=== PATIENT | female | born 1940 | race Caucasian/White ===

== ENCOUNTER → 2020-12-01 | Outpatient (CLI) | payer MEDICARE ==
[2020-12-01 14:48] LABS: BILIRUBIN,URINE NEGATIVE (NEGATIVE); CLARITY,URINE CLOUDY; COLOR,URINE YELLOW; GLUCOSE, URINE (UA) NEGATIVE (NEGATIVE); KETONES,URINE NEGATIVE (NEGATIVE); LEUKOCYTE ESTERASE ,URINE 3+ (NEGATIVE); NITRITE,URINE POSITIVE (NEGATIVE); PROTEIN,URINE NEGATIVE (NEGATIVE)
[2020-12-01 14:49] LABS: BACTERIA,URINE LARGE /HPF; SQUAMOUS EPITHELIAL CELL,UR 0-2 /HPF; WBC,URINE 25-50 /HPF
== END ==
LOC: IHC 14:28
DX: N39.0 Urinary tract infection, site not specified (principal)
CPT/HCPCS: 81000; 87077; 87088

== ENCOUNTER 2021-08-27 10:49 | Inpatient (IN) | payer MEDICARE ==
[~2021-08-27] VITALS: Ht 155 cm; Wt 37.6 kg
[2021-08-27 11:15] LABS: BASOPHILS # (AUTO) 0.1 10^3/uL (0.0-0.1); BASOPHILS % (AUTO) 1 % (0-10); EOSINOPHILS # (AUTO) 0.1 10^3/uL (0.0-0.3); EOSINOPHILS % (AUTO) 1 % (0-10); HEMATOCRIT 40 % (35-52); HEMOGLOBIN 13.6 g/dL (11.5-16.0); LYMPHOCYTES # (AUTO) 0.7 10^3/uL (1.0-4.0); LYMPHOCYTES % (AUTO) 6 % (12-44); MEAN CORPUSCULAR HEMOGLOBIN 31 pg (25-34); MEAN CORPUSCULAR HGB CONC 34 g/dL (32-36); MEAN CORPUSCULAR VOLUME 91 fL (80-99); MEAN PLATELET VOLUME 8.8 fL (9.0-12.2); MONOCYTES # (AUTO) 0.9 10^3/uL (0.0-1.0); MONOCYTES % (AUTO) 8 % (0-12); NEUTROPHILS # (AUTO) 9.6 10^3/uL (1.8-7.8); NEUTROPHILS % (AUTO) 84 % (42-75); PLATELET COUNT 291 10^3/uL (130-400); WHITE BLOOD COUNT 11.4 10^3/uL (4.3-11.0)
[2021-08-27 11:42] LABS: ALANINE AMINOTRANSFERASE 9 U/L (0-55); ALKALINE PHOSPHATASE 85 U/L (40-136); BILIRUBIN,TOTAL 0.8 MG/DL (0.1-1.0); BUN/CREATININE RATIO 23; CALCIUM 10.4 MG/DL (8.5-10.1); CARBON DIOXIDE 25 MMOL/L (21-32); CHLORIDE 92 MMOL/L (98-107); CREATININE SERUM 0.43 MG/DL (0.60-1.30); GFR ESTIMATED 96; GLUCOSE 116 MG/DL (70-105); POTASSIUM 3.5 MMOL/L (3.6-5.0); SODIUM 130 MMOL/L (135-145)
[2021-08-27 11:43] LABS: ALBUMIN 4.4 GM/DL (3.2-4.5); TOTAL PROTEIN 7.8 GM/DL (6.4-8.2)
[2021-08-27 11:45] LABS: BAND NEUTROPHILS 3 %; LYMPHOCYTES % (MANUAL) 8 %; MONOCYTES % (MANUAL) 7 %; NEUTROPHILS % (MANUAL) 82 %; RBC MORPH NORMAL
--- NOTE | 2021-08-27 11:47 | Diagnostic Imaging Report ---
EXAMINATION: Chest 1 view HISTORY: SOA COMPARISON: 05/02/2014 FINDINGS: Heart size and pulmonary vasculature are normal. There is a right-sided pneumothorax with 3.0 cm of pleural separation. Mild bibasilar atelectasis. No pleural effusion. Significant dextrocurvature of the spine. IMPRESSION: 1. Right-sided pneumothorax with 3 cm of pleural separation. CRITICAL FINDING. Results communicated to Dr. Hood Rosas by Dr. Timo Jose at 11:41 AM on 08/27/2021. Dictated by: Dictated on workstation # [id number]
[2021-08-27 11:50] LABS: ABG BASE EXCESS 7.2 MMOL/L (-2.5-2.5); ABG OXYGEN SATURATION 96 % (94-100); ABG PCO2 34 MMHG (35-45); ABG PH 7.55 (7.37-7.43); ABG PO2 70 MMHG (79-93); ABG TCO2 30.7 MMOL/L (21.0-31.0); ALLENS TEST YES-POS; INSPIRED O2 3L @95%; PATIENT TEMP 36.9; VENTILATOR NO
--- NOTE | 2021-08-27 12:06 | ED General ---
General Chief Complaint: Respiratory Problems Stated Complaint: SOB Nursing Triage Note: Patient presents to the ED with c/o right rib pain and shortness of breath. Patient reports fall 2 days ago and states she hit the right side of her ribs. Reports shortness of breath since that time. Nursing staff at assisted living facility report oxygen saturation of 85% on room air. Source of Information: Patient Exam Limitations: No Limitations History of Present Illness Date Seen by Provider: Aug 27, 2021 Time Seen by Provider: 11:00 Initial Comments Patient is an 86-year-old female who presents with right posterior rib pain after falling from standing 2 days ago. Patient reports persistent right posterior rib pain and shortness of breath since the time of fall. Patient has had [facility] facility reports her oxygen saturations were 85%. No fevers chills, cough, sore throat. No chest pain. Denies increased leg pain or swelling. Patient is not on anticoagulation or antiplatelet therapy. Additional history is obtained from the patient's family members. Timing/Duration: 1-2 Days Severity: Moderate Modifying Factors: improves with Other Associated Systoms: Denies Symptoms, Other Allergies and Home Medications Allergies Coded Allergies: No Known Drug Allergies (Unverified , 08/27/21) Patient Home Medication List Home Medication List Reviewed: Yes Review of Systems Review of Systems Constitutional: see HPI EENTM: see HPI Respiratory: see HPI Cardiovascular: see HPI Gastrointestinal: see HPI Genitourinary: see HPI Musculoskeletal: see HPI Skin: see HPI Psychiatric/Neurological: See HPI Hematologic/Lymphatic: See HPI Immunological/Allergic: see HPI All Other Systems Reviewed Negative Unless Noted: Yes Past Lxovqgm-Lanrqg-Gxvvfz Hx Patient Social History Tobacco Use?: Yes Substance use?: No Alcohol Use?: Yes Alcohol type: Wine Pt feels they are or have been: No Immunizations Up To Date First/Initial COVID19 Vaccinat: Yes Second COVID19 Vaccination Ronny: Yes Past Medical History Surgery/Hospitalization HX: Right mastectomy; Hernia repair; frequent falls; hip fracture with repair x2; c5 fracture. Neuropathy Physical Exam Vital Signs Vital Signs - First Documented 08/27/21 10:50 Temp 37.0 Pulse 95 Resp 20 B/P (MAP) 142/91 (108) Pulse Ox 94 O2 Delivery Nasal Cannula O2 Flow Rate 3.00 Capillary Refill : Less Than 3 Seconds Height, Weight, BMI Height: '" Weight: lbs. oz. kg; BMI Method: General Appearance: No Apparent Distress, Anxious Eyes: Bilateral Eye Normal Inspection, Bilateral Eye PERRL, Bilateral Eye EOMI HEENT: PERRL/EOMI, Normal ENT Inspection Neck: Non Tender, Supple Respiratory: No Accessory Muscle Use, Other (Diminished breath sounds right lung pruett, posterior chest wall tenderness with subcutaneous emphysema below the level of scapula) Cardiovascular: Regular Rate, Rhythm Gastrointestinal: Non Tender, Soft Back: No CVA Tenderness, Other (Severe scoliosis) Neurologic/Psychiatric: Alert, Oriented x3 Focused Exam Sepsis Stage: Ruled Out Progress/Results/Core Measures Suspected Sepsis SIRS Temperature: Pulse: 95 Respiratory Rate: 20 Laboratory Tests 08/27/21 11:05: White Blood Count 11.4H Blood Pressure 142 /91 Mean: 108 Laboratory Tests 08/27/21 11:05: Creatinine 0.43L, Platelet Count 291, Total Bilirubin 0.8 Results/Orders Lab Results Laboratory Tests Test 08/27/21 11:05 08/27/21 11:43 Range/Units White Blood Count 11.4 H 4.3-11.0 10^3/uL Red Blood Count 4.35 3.80-5.11 10^6/uL Hemoglobin 13.6 11.5-16.0 g/dL Hematocrit 40 35-52 % Mean Corpuscular Volume 91 80-99 fL Mean Corpuscular Hemoglobin 31 25-34 pg Mean Corpuscular Hemoglobin Concent 34 32-36 g/dL Red Cell Distribution Width 13.0 10.0-14.5 % Platelet Count 291 130-400 10^3/uL Mean Platelet Volume 8.8 L 9.0-12.2 fL Immature Granulocyte % (Auto) 0 % Neutrophils (%) (Auto) 84 H 42-75 % Lymphocytes (%) (Auto) 6 L 12-44 % Monocytes (%) (Auto) 8 0-12 % Eosinophils (%) (Auto) 1 0-10 % Basophils (%) (Auto) 1 0-10 % Neutrophils # (Auto) 9.6 H 1.8-7.8 10^3/uL Lymphocytes # (Auto) 0.7 L 1.0-4.0 10^3/uL Monocytes # (Auto) 0.9 0.0-1.0 10^3/uL Eosinophils # (Auto) 0.1 0.0-0.3 10^3/uL Basophils # (Auto) 0.1 0.0-0.1 10^3/uL Immature Granulocyte # (Auto) 0.0 0.0-0.1 10^3/uL Neutrophils % (Manual) 82 % Lymphocytes % (Manual) 8 % Monocytes % (Manual) 7 % Band Neutrophils 3 % Blood Morphology Comment NORMAL Sodium Level 130 L 135-145 MMOL/L Potassium Level 3.5 L 3.6-5.0 MMOL/L Chloride Level 92 L 98-107 MMOL/L Carbon Dioxide Level 25 21-32 MMOL/L Anion Gap 13 5-14 MMOL/L Blood Urea Nitrogen 10 7-18 MG/DL Creatinine 0.43 L 0.60-1.30 MG/DL Estimat Glomerular Filtration Rate 96 BUN/Creatinine Ratio 23 Glucose Level 116 H 70-105 MG/DL Calcium Level 10.4 H 8.5-10.1 MG/DL Corrected Calcium 10.1 8.5-10.1 MG/DL Total Bilirubin 0.8 0.1-1.0 MG/DL Aspartate Amino Transf (AST/SGOT) 19 5-34 U/L Alanine Aminotransferase (ALT/SGPT) 9 0-55 U/L Alkaline Phosphatase 85 40-136 U/L Troponin I < 0.30 <0.30 NG/ML Pro-B-Type Natriuretic Peptide 1301.0 H <75.0 PG/ML Total Protein 7.8 6.4-8.2 GM/DL Albumin 4.4 3.2-4.5 GM/DL Blood Gas Puncture Site LT RADIAL Blood Gas Patient Temperature 36.9 Arterial Blood pH 7.55 H 7.37-7.43 Arterial Blood Partial Pressure CO2 34 L 35-45 MMHG Arterial Blood Partial Pressure O2 70 L 79-93 MMHG Arterial Blood HCO3 30 H 23-27 MMOL/L Arterial Blood Total CO2 30.7 21.0-31.0 MMOL/L Arterial Blood Oxygen Saturation 96 94-100 % Arterial Blood Base Excess 7.2 H -2.5-2.5 MMOL/L Jesse Test YES-POS Blood Gas Ventilator Setting NO Blood Gas Inspired Oxygen 3L @95% My Orders Orders - MARK MILLER DO Cbc With Automated Diff (08/27/21 11:04) Comprehensive Metabolic Panel (08/27/21 11:04) Chest 1 View Ap/Pa Only (08/27/21 11:04) Ekg Tracing (08/27/21 11:04) Probnp Fs (08/27/21 11:04) Arterial Blood Gas (08/27/21 11:04) Troponin I Fs (08/27/21 11:04) Manual Differential (08/27/21 11:05) Lidocaine 1% Inj 20 Ml (Xylocaine 1% Inj (08/27/21 12:15) Lidocaine 1% Inj 50 Ml (Xylocaine 1% Inj (08/27/21 12:12) Ct Chest W (08/27/21 12:39) Iohexol Injection (Omnipaque 350 Mg/Ml 1 (08/27/21 12:45) Sodium Chloride Flush (Catheter Flush Sy (08/27/21 12:45) Ns (Ivpb) (Sodium Chloride 0.9% Ivpb Bag (08/27/21 12:45) Received Contrast (Hold Metformin- Contr (08/27/21 12:45) Iohexol Injection (Omnipaque 300 Mg/Ml 1 (08/27/21 13:15) Received Contrast (Hold Metformin- Contr (08/27/21 13:15) Furosemide Injection (Lasix Injection) (08/27/21 13:45) Medications Given in ED Current Medications Medications Dose Ordered Sig/Nahid Route Start Time Stop Time Status Last Admin Dose Admin Iohexol 75 ml ONCE ONCE IV 08/27/21 13:15 08/27/21 13:16 DC 08/27/21 13:10 75 ML Lidocaine HCl 20 ml ONCE ONCE INJ 08/27/21 12:15 08/27/21 12:16 DC 08/27/21 12:44 20 ML Sodium Chloride 10 ml NEEDED PRN IV 08/27/21 12:45 08/27/21 13:00 10 ML Sodium Chloride 100 ml ONCE ONCE IV 08/27/21 12:45 08/27/21 12:46 DC 08/27/21 13:00 100 ML Vital Signs/I&O 08/27/21 10:50 Temp 37.0 Pulse 95 Resp 20 B/P (MAP) 142/91 (108) Pulse Ox 94 O2 Delivery Nasal Cannula O2 Flow Rate 3.00 Capillary Refill : Less Than 3 Seconds Blood Pressure Mean: 108 Departure Communication (Admissions) Chest x-ray: Moderate right-sided pneumothorax per radiology report CT Chest: multiple posterior rib fractures with residual pneumothorax. Thera-vent chest tube/vacuum device placed and air aspirated. Patient with improved breathing with re-expansion of pneumothorax. Patient requires O2 to remain sats greater than 90%. Will transfer to [place]. Dr. Candelario to admit. Dr. Angel to consult. Impression Primary Impression: Pneumothorax on right Additional Impression: Ribs, multiple fractures Disposition: ADMITTED INPATIENT Condition: Stable Admissions Decision to Admit Reason: Admit from ER (General) Decision to Admit/Date: Aug 27, 2021 Transfer Method of Transfer: EMS Departure-Patient Inst. Referrals: SANTHOSH AZEVEDO APRN (PCP) Primary Care Physician [facility] (Family) Primary Care Physician MARK MILLER DO Aug 27, 2021 12:06
[2021-08-27] MEDS ORDERED: LIDOCAINE 1% INJ 50 ML (XYLOCAINE) VIAL ONE (12:12)
[2021-08-27] MEDS ORDERED: LIDOCAINE 1% INJ 20 ML VIAL INJ ONE (12:15)
[2021-08-27] MEDS ORDERED: NS 100 ML (IVPB) BAG IV ONE (12:45)
[2021-08-27] MEDS ORDERED: CATHETER FLUSH 10 ML SYR IV PRN (12:45)
[2021-08-27] MEDS ORDERED: HOLD METFORMIN - RECEIVED CONTRAST 20 ML VIAL IV SCH ×2 (12:45→13:15)
[2021-08-27] MEDS ORDERED: IOHEXOL 350 MG/ML 100 ML (OMNIPAQUE 350) VIAL IV ONE (12:45)
[2021-08-27] MEDS ORDERED: IOHEXOL 300 MG/ML 100 ML (OMNIPAQUE 300) VIAL IV ONE (13:15)
--- NOTE | 2021-08-27 13:37 | Diagnostic Imaging Report ---
PROCEDURE: CT chest with contrast only. TECHNIQUE: Multiple contiguous axial images were obtained through the chest after administration of intravenous contrast. Auto Exposure Controls were utilized during the CT exam to meet ALARA standards for radiation dose reduction. INDICATION: Dyspnea Since the chest x-ray performed earlier in the day, there has been placement of pleural catheter from anterior chest wall approach. There has been evacuation of the majority of the right pneumothorax. Small residual pneumothorax persists. The pleural catheter extends medially into the mediastinum with tip near the mynor. Otherwise, there is background emphysema throughout the lungs with mild right pleural fluid and associated subjacent atelectasis and/or pneumonitis in the right base. There are multiple fractures involving the lateral aspect of right ribs including 6th, 7th, and 8th ribs as well as what appear to be old fractures involving the posterior aspect of lower right ribs. There is extensive right convexity curvature of the thoracic spine. This does limit evaluation of osseous structures. There is also motion artifact which limits evaluation of the sternum. IMPRESSION: Small residual right pneumothorax post Thora-Vent placement. Catheter is deviated medially into the mediastinum with mild right pleural fluid and subjacent atelectasis and/or pneumonitis. Multiple right rib fractures are noted. There appears to be a combination of acute and chronic fractures and clinical correlation would be of use. Dictated by: Dictated on workstation # [id number]
[2021-08-27] MEDS ORDERED: FUROSEMIDE 40 MG/4 ML INJ (LASIX) IVP ONE (13:45)
[2021-08-27 16:09] VITALS: BP 160/92
[2021-08-27] MEDS ORDERED: polyethylene glycoL POWDER 17 GM (MIRALAX) PACK PO PRN (16:30)
[2021-08-27] MEDS ORDERED: diphenhydrAMINE 50 MG/ML INJ (BENADRYL) IVP PRN (16:30)
[2021-08-27] MEDS ORDERED: ANTACID SUSP 30 ML UDC (MYLANTA) PO PRN (16:30)
[2021-08-27] MEDS ORDERED: morphine INJ 4 MG/ML 1 ML (VIAL/SYRINGE) IV PRN (16:30)
[2021-08-27] MEDS ORDERED: ACETAMINOPHEN 325 MG TABLET PO PRN (16:30)
[2021-08-27] MEDS ORDERED: MELATONIN 3 MG TABLET PO PRN (16:30)
[2021-08-27] MEDS ORDERED: BISACODYL 10 MG SUPP (DULCOLAX) PR PRN (16:30)
[2021-08-27] MEDS ORDERED: ONDANSETRON 4 MG (ZOFRAN) ORAL DISSOLVE TAB PO PRN (16:30)
[2021-08-27] MEDS ORDERED: diphenhydrAMINE 25 MG TAB (BENADRYL) PO PRN (16:30)
[2021-08-27] MEDS ORDERED: ONDANSETRON 4 MG/2 ML (SDV) Z0FRAN IV PRN (16:30)
[2021-08-27 16:58] VITALS: BP 142/91
[2021-08-27] MEDS: ENOXAPARIN INJECTION 30 MG/0.3 ML SYR SC SCH (17:19)
[2021-08-27] MEDS: RT-ALBUTEROL SULF 2.5 MG/3 ML PRE-MIX VIAL INH SCH ×2 (18:43→21:52)
[2021-08-27 19:36] VITALS: BP 148/89
[2021-08-27] MEDS ORDERED: RT-ALBUTEROL SULF 2.5 MG/3 ML PRE-MIX VIAL INH PRN (20:00)
[2021-08-27] MEDS: DOCUSATE SODIUM 100 MG (COLACE) CAP PO SCH (20:37)
[2021-08-27] MEDS ORDERED: fentaNYL INJ 100 MCG/2 ML AMP IVP PRN (22:15)
[2021-08-27] MEDS: HYDROcodone/APAP 5 MG/325 MG (LORTAB) TAB PO PRN (22:31)
[2021-08-28] VITALS (7 sets, daily range): BP systolic 93–141; BP diastolic 52–84
[2021-08-28] MEDS: RT-ALBUTEROL SULF 2.5 MG/3 ML PRE-MIX VIAL INH SCH ×4 (01:56→20:19)
[2021-08-28 05:52] LABS: BASOPHILS # (AUTO) 0.1 10^3/uL (0.0-0.1); BASOPHILS % (AUTO) 1 % (0-10); EOSINOPHILS # (AUTO) 0.4 10^3/uL (0.0-0.3); EOSINOPHILS % (AUTO) 5 % (0-10); HEMATOCRIT 37 % (35-52); HEMOGLOBIN 12.3 g/dL (11.5-16.0); LYMPHOCYTES # (AUTO) 0.9 10^3/uL (1.0-4.0); LYMPHOCYTES % (AUTO) 11 % (12-44); MEAN CORPUSCULAR HEMOGLOBIN 32 pg (25-34); MEAN CORPUSCULAR HGB CONC 34 g/dL (32-36); MEAN CORPUSCULAR VOLUME 95 fL (80-99); MONOCYTES # (AUTO) 0.9 10^3/uL (0.0-1.0); MONOCYTES % (AUTO) 11 % (0-12); NEUTROPHILS # (AUTO) 6.1 10^3/uL (1.8-7.8); NEUTROPHILS % (AUTO) 73 % (42-75); PLATELET COUNT 235 10^3/uL (130-400); WHITE BLOOD COUNT 8.4 10^3/uL (4.3-11.0)
--- NOTE | 2021-08-28 06:03 | History & Physical-Hospitalist ---
History of Present Illness HPI/Chief Complaint Chief complaint: Right-sided pneumothorax History present illness: This is an 81-year-old female who resides in assisted living who sustained a fall 2 days prior and subsequent right rib pain was becoming short of breath with pulse ox of 85% she was assessed in the ER to have right-sided subcutaneous air with crepitus chest x-ray showed pneumothorax and Thora vent was placed. Dr. HERNÁNDEZ's been consulted. She reports the rib pain is much improved. Tylenol only is given and hydrocodone is ordered but she is hesitant due to constipating effects. I did start her on MiraLAX. Family at the bedside. Patient has severe scoliosis and chest x-ray shows COPD changes. Source: patient, RN/MD, old records Exam Limitations: no limitations Date Seen 08/28/21 Time Seen by a Provider: 09:00 Attending Physician Cate Wolff Aprn PCP Admitting Physician: Cordelia Bianchi DO Attending Physician: Cordelia Bianchi DO Referring Physician Date of Admission Aug 27, 2021 at 15:55 Home Medications & Allergies Home Medications Reviewed patient Home Medication Reconciliation performed by pharmacy medication reconciliations crane service technician and/or nursing. Patients Allergies have been reviewed. Allergies Allergies Coded Allergies No Known Drug Allergies (Unverified08/27/21) Past Eofeafd-Gircxm-Tzouid Hx Patient Social History Marrital Status: single Employed/Student: retired Tobacco Use?: No Smoking Status: Former Smoker Substance use?: No Alcohol Use?: Yes Alcohol type: Wine Alcohol Frequency: Daily Pt feels they are or have been: No Immunizations Up To Date First/Initial COVID19 Vaccinat: Yes Second COVID19 Vaccination Ronny: Yes Current Status Advance Directives: No Primary Language: Syrian Preferred Spoken Language: Syrian Sensory deficits: Vision impairment Past Medical History Degenerate Disk Disease Breast Review of Systems Constitutional: see HPI EENTM: no symptoms reported Respiratory: dyspnea on exertion Cardiovascular: no symptoms reported Gastrointestinal: no symptoms reported Genitourinary: no symptoms reported Physical Exam Physical Exam Vital Signs Vital Signs - First Documented 08/27/21 08/27/21 10:50 16:58 Temp 37.0 Pulse 95 Resp 20 B/P (MAP) 142/91 (108) Pulse Ox 94 O2 Delivery Nasal Cannula O2 Flow Rate 3.00 FiO2 32 Capillary Refill : Less Than 3 Seconds Height, Weight, BMI Height: '" Weight: lbs. oz. kg; 15.65 BMI Method: General Appearance: No Apparent Distress Eyes: Right Eye Normal Inspection, Right Eye PERRL HEENT: PERRL/EOMI, Normal ENT Inspection, Pharynx Normal, Moist Mucous Me mbranes Neck: Full Range of Motion, Normal Inspection, Non Tender Respiratory: Chest Non Tender, Normal Breath Sounds, No Accessory Muscle Use, No Respiratory Distress, Decreased Breath Sounds (On the right) Cardiovascular: Regular Rate, Rhythm, No Edema, No Gallop, No JVD, No Murmur, Normal Peripheral Pulses Gastrointestinal: Normal Bowel Sounds, No Organomegaly, No Pulsatile Mass, Non Tender, Soft Back: Normal Inspection, No CVA Tenderness, No Vertebral Tenderness, Other (Severe scoliosis) Extremity: Normal Capillary Refill, Normal Inspection, Normal Range of Motion, Non Tender, No Calf Tenderness, No Pedal Edema Neurologic/Psychiatric: Alert, Oriented x3, No Motor/Sensory Deficits, Normal Mood/Affect Skin: Normal Color, Warm/Dry Lymphatic: No Adenopathy Results Results/Procedures Labs Laboratory Tests 08/27/21 11:05 08/28/21 05:45 Patient resulted labs reviewed. Assessment/Plan Admission Diagnosis Assessment: Right-sided pneumothorax status post Thora vent placement Fall with right rib fractures causing pneumothorax Chronic constipation History of breast cancer Severe scoliosis COPD changes on chest x-ray Congestive heart failure? Plan: Consult Dr. Mendez O2 Consult [address] HERNÁNDEZ for chest tube management Pain control Admission Status: Inpatient Order (span 2 midnights) Reason for Inpatient Admission: Pneumothorax Diagnosis/Problems Diagnosis/Problems (1) Pneumothorax on right Status: Acute CORDELIA BIANCHI DO Aug 28, 2021 06:03
[2021-08-28 06:18] LABS: ALBUMIN 3.3 GM/DL (3.2-4.5); POTASSIUM 3.2 MMOL/L (3.6-5.0)
[2021-08-28 06:19] LABS: CALCIUM 9.2 MG/DL (8.5-10.1)
[2021-08-28 06:20] LABS: TOTAL PROTEIN 6.3 GM/DL (6.4-8.2)
[2021-08-28 06:22] LABS: BILIRUBIN,TOTAL 0.8 MG/DL (0.1-1.0)
[2021-08-28 06:24] LABS: CREATININE SERUM 0.54 MG/DL (0.60-1.30)
--- NOTE | 2021-08-28 06:36 | CONSULTATION REPORT ---
DATE OF SERVICE: ADMITTING PHYSICIAN: Cordelia Candelario DO ATTENDING SALES ARCHITECT: Cate Wolff APRN. The majority of the history and physical was obtained through the emergency room physician as well as electronic medical records and the physical examination will be performed in a.m. HISTORY OF PRESENT ILLNESS: The patient is an 81-year-old female with same level fall 2 days ago. She then reports pain along the right posterior chest as well as worsening shortness of breath. She resides in a shelter facility and her oxygen saturation was found to be 85%. She was brought to the Emergency Department where a chest x-ray as well as CT scan was performed, which did show a small to moderate sized pneumothorax along the right side approximately 3 cm in size. She also does have a nondisplaced posterolateral right rib fractures 6 through 8. A Thora-Vent was placed by the ED staff and followup x-ray did show just a small residual pneumothorax. She does have some level of confusion. She is awake and alert and does answer majority of questions appropriately. Her [place] coma scale upon admission was 13. PAST MEDICAL HISTORY: History of breast cancer, neuropathy, ataxia, frequent falls, and COPD. PAST SURGICAL HISTORY: Right mastectomy, hernia repair, hip fracture x2, ORIF of C5. ALLERGIES: No known drug allergies. MEDICATIONS: Albuterol nebulizer q.2 hours p.r.n., Colace 100 mg b.i.d., enoxaparin 30 mg daily, hydrocodone p.r.n., morphine p.r.n., Zofran p.r.n., oxycodone p.r.n., MiraLax p.r.n. SOCIAL HISTORY: Previous smoker, a history of drinking wine. FAMILY HISTORY: Noncontributory. VITAL SIGNS: Temperature 36.7, blood pressure 148/89, pulse 88, respirations 20, pulse ox 97% on 3 liters nasal cannula. Physical examination will be assessed upon examination. LABORATORY DATA: WBC 11.4, hemoglobin 13.6, hematocrit 40, and platelets 291, BUN 10, creatinine 0.43. ASSESSMENT AND PLAN: An 81-year-old female with a history of frequent falls with a same level fall at her shelter facility 2 days ago with worsening shortness of breath and found to have a small to moderate size right pneumothorax as well as posterolateral right rib fractures 6 through 8. A Thora-Vent was placed and there is minimal residual pneumothorax remaining. We will proceed with serial chest x-rays and once the pneumothorax has resolved, we will remove the Thora-Vent. She will also need pneumonia prophylaxis with adequate pain control, incentive spirometry, early ambulation as well as breathing treatments. Job ID: [id number] DocumentID: [id number] Dictated Date: 08/27/2021 22:09:23 Shift Supervisor Film Processing Date: 08/28/2021 06:35:20 Dictated By: CANDICE HERNÁNDEZ MD
[2021-08-28] MEDS: DOCUSATE SODIUM 100 MG (COLACE) CAP PO SCH ×2 (09:22→20:42)
--- NOTE | 2021-08-28 09:32 | Diagnostic Imaging Report ---
Indication: Pneumothorax. Catheter projects over the right hemithorax. There is a persistent right pneumothorax without evidence for its tension. Apical pleural separation at 2.6 cm today, previously 3 cm. Slightly decreased pleural fluid at the right base better visualized owing to upright technique. 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 IMPRESSION: The right pneumothorax measures slightly smaller than on prior. Right pleural fluid volume may have increased. Severe underlying COPD superimposed chronic as is S type scoliosis. Dictated by: Dictated on workstation # [id number]
--- NOTE | 2021-08-28 10:53 | Consultation-Cardiology ---
HPI-Cardiology Cardiology Consultation: Date of Consultation 08/28/21 Date of Admission 08/27/21 Attending Physician Cate Wolff Aprn Admitting Physician Admitting Physician: Cordelia Candelario DO Attending Physician: Cordelia Candelario DO Consulting Physician JIA ALEXANDER JR, MD HPI: Time Seen by a Provider: 11:12 Chief Complaint: REASON FOR CONSULTATION: Abnormal BNP level. I had the pleasure of seeing Ev on the medical/surgical unit at [facility] in [place], [place] today. She has no significant past medical history. She is currently residing at an assisted care facility with her in [place], [place]. Yesterday one of the facility staff noticed that the patient appeared to be having shortness of breath. She was subsequently taken to the emergency room at [place] and during her evaluation, she was found to have a significant right-sided pneumothorax. A chest tube was placed and she was transferred to our hospital for further treatment and evaluation. During her evaluation in the outside emergency room, a BNP level was obtained and this was mildly elevated. A cardiology consultation was subsequently requested. She does have some mild pleuritic chest pain near the chest tube insertion site. She does not normally have shortness of breath. She denies paroxysmal nocturnal dyspnea, orthopnea, palpitations, lightheadedness, syncope, or ankle edema. Over the past 18 or so months, she has suffered several falls. 2 of these resulted in hip fractures. She does also have severe osteoporosis. Certain portions of this document may have been dictated utilizing voice recognition technology. Inherent to this technology, typographical and grammatical errors may exist. As much as I am diligent to identify and correct these mistakes, some errors may remain in the document. Review of Systems-Cardiology Review of Systems Other comments Review of 10 organ systems is as per the history of present illness, otherwise negative. All Other Systems Reviewed Negative Unless Noted: Yes OVY-Sulcpf-Nzqery Hx Patient Social History Marrital Status: Smoking Status: Former Smoker Have you traveled recently?: No Alcohol Use?: Yes Pt feels they are or have been: No Past Medical History PMH As described under Assessment. Family Medical History Family Medical History: The patient does not know of any family history of premature coronary artery disease in first-degree relatives. Allergies and Home Medications Allergies Coded Allergies: No Known Drug Allergies (Unverified , 08/27/21) Patient Home Medication List Home Medication List Reviewed: Yes Exam Vital Signs Vital Signs Date Time Temp Pulse Resp B/P (MAP) Pulse Ox O2 Delivery O2 Flow Rate FiO2 08/28/21 07:10 37.5 80 20 115/69 (84) 94 Nasal Cannula 1.00 08/27/21 16:58 32 Physical Exam General: Alert. No acute distress. Well nourished and appears stated age. Eye: Extraocular movements are intact. Conjunctivae are clear. There are no xanthelasma. HENT: Normocephalic. Atraumatic. Carotid pulsations 2/2 without bruits. Neck: Jugular venous pressure does not appear elevated. No thyromegaly appreciated. Respiratory: Lungs are clear to auscultation. She has a right-sided chest tube in place. Respirations are non-labored. Breath sounds are equal. Symmetrical chest wall expansion. Cardiovascular: Normal rate. Regular rhythm. No murmur. No gallop. Point of maximal impulse is not appear displaced. Good pulses equal in all extremities. No edema. Gastrointestinal: Soft. Normal bowel sounds. Skin: Skin turgor is normal. There is no pallor. Musculoskeletal: There is significant thoracic scoliosis. Neurologic: Alert and oriented to person, place, time. Cranial nerves 3-12 appear grossly intact. The patient has good motor tone strength in the upper and lower extremities bilaterally. Psychiatric: Cooperative. Appropriate mood & affect. Labs Laboratory Tests Test 08/27/21 11:43 08/28/21 05:45 Range/Units Blood Gas Puncture Site LT RADIAL Blood Gas Patient Temperature 36.9 Arterial Blood pH 7.55 H 7.37-7.43 Arterial Blood Partial Pressure CO2 34 L 35-45 MMHG Arterial Blood Partial Pressure O2 70 L 79-93 MMHG Arterial Blood HCO3 30 H 23-27 MMOL/L Arterial Blood Total CO2 30.7 21.0-31.0 MMOL/L Arterial Blood Oxygen Saturation 96 94-100 % Arterial Blood Base Excess 7.2 H -2.5-2.5 MMOL/L Jesse Test YES-POS Blood Gas Ventilator Setting NO Blood Gas Inspired Oxygen 3L @95% White Blood Count 8.4 4.3-11.0 10^3/uL Red Blood Count 3.85 3.80-5.11 10^6/uL Hemoglobin 12.3 11.5-16.0 g/dL Hematocrit 37 35-52 % Mean Corpuscular Volume 95 80-99 fL Mean Corpuscular Hemoglobin 32 25-34 pg Mean Corpuscular Hemoglobin Concent 34 32-36 g/dL Red Cell Distribution Width 13.1 10.0-14.5 % Platelet Count 235 130-400 10^3/uL Mean Platelet Volume 9.0 9.0-12.2 fL Immature Granulocyte % (Auto) 0 % Neutrophils (%) (Auto) 73 42-75 % Lymphocytes (%) (Auto) 11 L 12-44 % Monocytes (%) (Auto) 11 0-12 % Eosinophils (%) (Auto) 5 0-10 % Basophils (%) (Auto) 1 0-10 % Neutrophils # (Auto) 6.1 1.8-7.8 10^3/uL Lymphocytes # (Auto) 0.9 L 1.0-4.0 10^3/uL Monocytes # (Auto) 0.9 0.0-1.0 10^3/uL Eosinophils # (Auto) 0.4 H 0.0-0.3 10^3/uL Basophils # (Auto) 0.1 0.0-0.1 10^3/uL Immature Granulocyte # (Auto) 0.0 0.0-0.1 10^3/uL Sodium Level 131 L 135-145 MMOL/L Potassium Level 3.2 L 3.6-5.0 MMOL/L Chloride Level 95 L 98-107 MMOL/L Carbon Dioxide Level 27 21-32 MMOL/L Anion Gap 9 5-14 MMOL/L Blood Urea Nitrogen 10 7-18 MG/DL Creatinine 0.54 L 0.60-1.30 MG/DL Estimat Glomerular Filtration Rate 91 BUN/Creatinine Ratio 19 Glucose Level 93 70-105 MG/DL Calcium Level 9.2 8.5-10.1 MG/DL Corrected Calcium 9.8 8.5-10.1 MG/DL Total Bilirubin 0.8 0.1-1.0 MG/DL Aspartate Amino Transf (AST/SGOT) 15 5-34 U/L Alanine Aminotransferase (ALT/SGPT) 8 0-55 U/L Alkaline Phosphatase 55 40-136 U/L Total Protein 6.3 L 6.4-8.2 GM/DL Albumin 3.3 3.2-4.5 GM/DL Radiology ECHOCARDIOGRAM (08/28/2021): 1. Left ventricle: The cavity size is normal. There is moderate asymmetric hypertrophy of the septum. Systolic function is normal. The estimated ejection fraction is 70-75%. There were no regional wall motion abnormalities identified. Doppler parameters are consistent with abnormal left ventricular relaxation (grade 1 diastolic dysfunction). 2. Pulmonary arteries: The estimated pulmonary artery systolic pressure is 42 mmHg assuming a right atrial pressure of 5 mmHg. ECG Impression ECG Comment Sinus rhythm with left anterior hemiblock and possible old anteroseptal myocardial infarction. Diagnosis/Problems Diagnosis/Problems (1) Elevated brain natriuretic peptide (BNP) level Assessment & Plan: She had a mildly elevated troponin level but has a normal ejection fraction with no significant valvular disease. She does have evidence of grade 1 diastolic dysfunction on her echocardiogram but has not been having any significant shortness of breath until the discovery of the pneumothorax. She also has a mild degree of pulmonary hypertension and I suspect this is the explanation for the elevated troponin level. I do not believe she has heart failure. She was given 1 dose of intravenous Lasix. I would not give her any additional diuretic at this point in time. (2) Pulmonary hypertension Assessment & Plan: She had mildly elevated pulmonary pressure on her echocardiogram from this morning. I suspect this could be related to the pneumothorax. This could have in turn caused the BNP level to become elevated. Given her advanced age and frail state, I do not think she warrants any additional testing in regards to the mildly elevated pulmonary pressure. (3) Frequent falls Assessment & Plan: She denies lightheadedness or syncope. Her daughter zachary elieves that she has just been losing her balance. However, this does raise a concern about possible arrhythmias. She is currently on telemetry. When she is ready for discharge, we may want to consider a 30-day outpatient external monitor. (4) Frailty Assessment & Plan: Given her current clinical status and most recent medical issues, I would consider her at least moderately frail. I would recommend conservative management at this point in time. JIA ALEXANDER JR, MD Aug 28, 2021 10:53
[2021-08-28] MEDS ORDERED: KCL 20 MEQ TAB (K-DUR) PO NR (11:30)
[2021-08-28] MEDS ORDERED: polyethylene glycoL POWDER 17 GM (MIRALAX) PACK PO NR (11:45)
[2021-08-28] MEDS: ACETAMINOPHEN 500 MG TAB (TYLENOL) PO SCH ×2 (11:53→17:12)
--- NOTE | 2021-08-28 12:18 | Progress Note ---
Subjective Date Seen by a Provider: Aug 28, 2021 Time Seen by a Provider: 11:20 Subjective/Events-last exam Patient seen with Dr. Angel. Patient reports doing ok. Denies any shortness of breath. Ambulating some around room. Using IS some. Reports right rib pain with deep breathing. Objective Exam Vital Signs Date Time Temp Pulse Resp B/P (MAP) Pulse Ox O2 Delivery O2 Flow Rate FiO2 08/28/21 11:25 37.6 93 26 93/52 (66) 91 Room Air 08/28/21 07:10 37.5 80 20 115/69 (84) 94 Nasal Cannula 1.00 08/28/21 07:00 79 08/28/21 06:45 37.0 80 97 08/28/21 06:41 97 Nasal Cannula 3.00 08/28/21 04:02 37.0 80 18 123/84 (97) 97 Nasal Cannula 3.00 08/28/21 01:56 97 Nasal Cannula 3.00 08/28/21 01:00 95 08/28/21 00:23 37.0 96 18 125/74 (91) 95 Nasal Cannula 2.00 08/27/21 21:52 97 Nasal Cannula 3.00 08/27/21 20:00 Nasal Cannula 3.00 08/27/21 19:36 36.7 88 20 148/89 (108) 97 Nasal Cannula 3.00 08/27/21 19:00 100 08/27/21 18:47 97 Nasal Cannula 3.00 08/27/21 17:16 80 08/27/21 16:58 36.9 95 94 32 08/27/21 16:09 36.3 82 20 160/92 (114) 97 Nasal Cannula 3.00 08/27/21 16:00 97 Nasal Cannula 3.00 08/27/21 14:50 37.0 78 20 136/82 99 Room Air 3.00 3.00 I & O 08/28/21 07:00 Intake Total 540 ml Output Total 500 ml Balance 40 ml Capillary Refill : Less Than 3 Seconds General Appearance: No Apparent Distress, WD/WN Neck: Normal Inspection, Supple Respiratory: No Accessory Muscle Use, No Respiratory Distress, Other (Right thoravent in place) Cardiovascular: Regular Rate, Rhythm, No Edema Gastrointestinal: normal bowel sounds, non tender, soft Neurologic/Psychiatric: Alert, Oriented x3 Skin: Normal Color, Warm/Dry Results Lab Laboratory Tests 08/28/21 05:45: White Blood Count 8.4, Red Blood Count 3.85, Hemoglobin 12.3, Hematocrit 37, Mean Corpuscular Volume 95, Mean Corpuscular Hemoglobin 32, Mean Corpuscular Hemoglobin Concent 34, Red Cell Distribution Width 13.1, Platelet Count 235, Mean Platelet Volume 9.0, Immature Granulocyte % (Auto) 0, Neutrophils (%) (Auto) 73, Lymphocytes (%) (Auto) 11L, Monocytes (%) (Auto) 11, Eosinophils (%) (Auto) 5, Basophils (%) (Auto) 1, Neutrophils # (Auto) 6.1, Lymphocytes # (Auto) 0.9L, Monocytes # (Auto) 0.9, Eosinophils # (Auto) 0.4H, Basophils # (Auto) 0.1, Immature Granulocyte # (Auto) 0.0, Sodium Level 131L, Potassium Level 3.2L, Chloride Level 95L, Carbon Dioxide Level 27, Anion Gap 9, Blood Urea Nitrogen 10, Creatinine 0.54L, Estimat Glomerular Filtration Rate 91, BUN/Creatinine Ratio 19, Glucose Level 93, Calcium Level 9.2, Corrected Calcium 9.8, Total Bilirubin 0.8, Aspartate Amino Transf (AST/SGOT) 15, Alanine Aminotransferase (ALT/SGPT) 8, Alkaline Phosphatase 55, Total Protein 6.3L, Albumin 3.3 Assessment/Plan Assessment/Plan Assess & Plan/Chief Complaint An 81-year-old female with a history of frequent falls with a same level fall, shortness of breath, right pneumothorax, posterolateral right rib fractures 6 through 8. VSS WBC 8.4 Chest x-ray slightly better this AM - will continue to monitor Pneumonia prophylaxis with adequate pain control, incentive spirometry, early ambulation as well as breathing treatments. RAJWINDER SIMPSON SHIPPING TRACK SUPERVISOR Aug 28, 2021 12:18
--- NOTE | 2021-08-28 12:38 | Progress Note ---
Standard Progress Note Progress Notes/Assess & Plan Date Seen by a Provider: Aug 28, 2021 Time Seen by a Provider: 11:00 Progress/Assessment & Plan doing ok. tolerating diet. pain controlled. sitting upright. no SOB. PE: chest slignt decrease bs rt apex. hear-reg, no murmurs. extr-no edema, neg homans. heent-no scleral icterus, no neck pain. abd-soft NT/ND. -cont thorovent, IS and ambulation. will repeat cxr in am. CANDICE HERNÁNDEZ MD Aug 28, 2021 12:38
[2021-08-28] MEDS: ENOXAPARIN INJECTION 30 MG/0.3 ML SYR SC SCH (17:12)
[2021-08-28] MEDS: polyethylene glycoL POWDER 17 GM (MIRALAX) PACK PO SCH (20:42)
[2021-08-28] MEDS: HYDROcodone/APAP 5 MG/325 MG (LORTAB) TAB PO PRN (20:43)
[2021-08-29] VITALS (7 sets, daily range): BP systolic 104–147; BP diastolic 66–84
[2021-08-29] MEDS: RT-ALBUTEROL SULF 2.5 MG/3 ML PRE-MIX VIAL INH SCH ×4 (02:37→20:31)
[2021-08-29] MEDS: ACETAMINOPHEN 500 MG TAB (TYLENOL) PO SCH ×3 (03:07→18:49)
[2021-08-29 05:28] LABS: BASOPHILS % (AUTO) 1 % (0-10); EOSINOPHILS # (AUTO) 0.6 10^3/uL (0.0-0.3); EOSINOPHILS % (AUTO) 7 % (0-10); HEMATOCRIT 34 % (35-52); HEMOGLOBIN 11.7 g/dL (11.5-16.0); LYMPHOCYTES # (AUTO) 0.7 10^3/uL (1.0-4.0); LYMPHOCYTES % (AUTO) 8 % (12-44); MEAN CORPUSCULAR HEMOGLOBIN 32 pg (25-34); MEAN CORPUSCULAR HGB CONC 34 g/dL (32-36); MEAN CORPUSCULAR VOLUME 93 fL (80-99); MEAN PLATELET VOLUME 9.1 fL (9.0-12.2); MONOCYTES # (AUTO) 0.7 10^3/uL (0.0-1.0); MONOCYTES % (AUTO) 8 % (0-12); NEUTROPHILS # (AUTO) 6.5 10^3/uL (1.8-7.8); NEUTROPHILS % (AUTO) 76 % (42-75); PLATELET COUNT 254 10^3/uL (130-400); WHITE BLOOD COUNT 8.5 10^3/uL (4.3-11.0)
[2021-08-29 05:49] LABS: ALBUMIN 3.3 GM/DL (3.2-4.5); POTASSIUM 3.8 MMOL/L (3.6-5.0)
[2021-08-29 05:51] LABS: CALCIUM 9.5 MG/DL (8.5-10.1)
[2021-08-29 05:52] LABS: TOTAL PROTEIN 6.2 GM/DL (6.4-8.2)
[2021-08-29 05:54] LABS: BILIRUBIN,TOTAL 0.6 MG/DL (0.1-1.0)
[2021-08-29 05:55] LABS: CREATININE SERUM 0.55 MG/DL (0.60-1.30)
[2021-08-29] MEDS: KCL 20 MEQ TAB (K-DUR) PO SCH (06:08)
--- NOTE | 2021-08-29 06:59 | Progress Note - Hospitalist ---
Subjective HPI/CC On Admission Date Seen by Provider: Aug 29, 2021 Time Seen by Provider: 10:00 Chief complaint: Right-sided pneumothorax History present illness: This is an 81-year-old female who resides in assisted living who sustained a fall 2 days prior and subsequent right rib pain was becoming short of breath with pulse ox of 85% she was assessed in the ER to have right-sided subcutaneous air with crepitus chest x-ray showed pneumothorax and Thora vent was placed. Dr. HERNÁNDEZ's been consulted. She reports the rib pain is much improved. Tylenol only is given and hydrocodone is ordered but she is hesitant due to constipating effects. I did start her on MiraLAX. Family at the bedside. Patient has severe scoliosis and chest x-ray shows COPD changes. Subjective/Events-last exam Patient doing pretty well Pneumothorax improved on chest x-ray Appreciate Dr. Mendez evaluated and everything Pulmonary hypertension from the pneumothorax noted Bowels not moving as much and like so I will give her lactulose Family at the bedside Review of Systems General: Fatigue, Malaise Pulmonary: Dyspnea Objective Exam Vital Signs Vital Signs Date Time Temp Pulse Resp B/P (MAP) Pulse Ox O2 Delivery O2 Flow Rate FiO2 08/29/21 16:09 37.4 84 20 128/69 (88) 92 Room Air 08/29/21 04:00 2.00 08/27/21 16:58 32 Capillary Refill : Less Than 3 Seconds General Appearance: No Apparent Distress, WD/WN, Chronically ill, Thin Respiratory: No Accessory Muscle Use, No Respiratory Distress, Decreased Breath Sounds Cardiovascular: Regular Rate, Rhythm Neurologic/Psychiatric: Alert, Oriented x3, No Motor/Sensory Deficits, Normal Mood/Affect Results/Procedures Lab Laboratory Tests 08/29/21 05:19 Patient resulted labs reviewed. Assessment/Plan Assessment and Plan Assess & Plan/Chief Complaint Assessment: Right-sided pneumothorax status post Thora vent placement Fall with right rib fractures causing pneumothorax Chronic constipation History of breast cancer Severe scoliosis COPD changes on chest x-ray Congestive heart failure? Plan: Consult Dr. Mendez O2 Consult [address] HERNÁNDEZ for chest tube management Pain control 08/29/2021: Bowel regimen Pain control Ambulate Diagnosis/Problems Diagnosis/Problems (1) Pneumothorax on right Status: Acute SRIRAM BIANCHI DO Aug 29, 2021 06:59
--- NOTE | 2021-08-29 07:40 | Diagnostic Imaging Report ---
EXAMINATION: Chest 1 view HISTORY: Pneumothorax COMPARISON: 08/27/2021 FINDINGS: Stable mild enlargement of the cardiac silhouette. A right-sided chest tube is present. There has been decreased size of the right-sided pneumothorax with 1.5 cm of pleural separation (previously 3.0). There is a small right pleural effusion. Left lung is clear. IMPRESSION: 1. Decreased size of the right pneumothorax compared to 08/27/2021 status post chest tube placement. Dictated by: Dictated on workstation # [id number]
[2021-08-29] MEDS: DOCUSATE SODIUM 100 MG (COLACE) CAP PO SCH ×2 (08:02→19:35)
--- NOTE | 2021-08-29 09:32 | Progress Note ---
Subjective Date Seen by a Provider: Aug 29, 2021 Time Seen by a Provider: 09:15 Subjective/Events-last exam Patient seen with Dr. Angel. Patient sitting in bedside chair. No complaints. Ambulating and using IS. Objective Exam Vital Signs Date Time Temp Pulse Resp B/P (MAP) Pulse Ox O2 Delivery O2 Flow Rate FiO2 08/29/21 08:10 37.4 81 18 128/84 (99) 92 Room Air 08/29/21 08:00 92 Room Air 08/29/21 04:00 36.7 73 18 136/66 (89) 97 Nasal Cannula 2.00 08/29/21 00:00 36.7 83 17 128/73 (91) 94 Nasal Cannula 2.00 08/28/21 20:19 90 Room Air 08/28/21 20:00 Nasal Cannula 3.00 08/28/21 19:57 36.3 99 18 141/70 (93) 92 Room Air 08/28/21 17:00 36.5 95 18 134/75 (94) 93 Room Air 08/28/21 14:44 90 Room Air 08/28/21 11:25 37.6 93 26 93/52 (66) 91 Room Air I & O 08/29/21 07:00 Intake Total 1490 ml Balance 1490 ml Capillary Refill : Less Than 3 Seconds General Appearance: No Apparent Distress, WD/WN Neck: Normal Inspection, Supple Respiratory: No Accessory Muscle Use, No Respiratory Distress Cardiovascular: Regular Rate, Rhythm, No Edema Extremity: Normal Inspection, Normal Range of Motion Neurologic/Psychiatric: Alert, Oriented x3 Skin: Normal Color, Warm/Dry Results Lab Laboratory Tests 08/29/21 05:19: White Blood Count 8.5, Red Blood Count 3.68L, Hemoglobin 11.7, Hematocrit 34L, Mean Corpuscular Volume 93, Mean Corpuscular Hemoglobin 32, Mean Corpuscular Hemoglobin Concent 34, Red Cell Distribution Width 12.7, Platelet Count 254, Mean Platelet Volume 9.1, Immature Granulocyte % (Auto) 0, Neutrophils (%) (Auto) 76H, Lymphocytes (%) (Auto) 8L, Monocytes (%) (Auto) 8, Eosinophils (%) (Auto) 7, Basophils (%) (Auto) 1, Neutrophils # (Auto) 6.5, Lymphocytes # (Auto) 0.7L, Monocytes # (Auto) 0.7, Eosinophils # (Auto) 0.6H, Basophils # (Auto) 0.0, Immature Granulocyte # (Auto) 0.0, Sodium Level 130L, Potassium Level 3.8, Chloride Level 94L, Carbon Dioxide Level 25, Anion Gap 11, Blood Urea Nitrogen 18, Creatinine 0.55L, Estimat Glomerular Filtration Rate 91, BUN/Creatinine Ratio 33, Glucose Level 97, Calcium Level 9.5, Corrected Calcium 10.1, Total Bilirubin 0.6, Aspartate Amino Transf (AST/SGOT) 15, Alanine Aminotransferase (ALT/SGPT) 9, Alkaline Phosphatase 53, Total Protein 6.2L, Albumin 3.3 Assessment/Plan Assessment/Plan Assess & Plan/Chief Complaint An 81-year-old female with a history of frequent falls with a same level fall, shortness of breath, right pneumothorax, posterolateral right rib fractures 6 through 8. VSS WBC 8.5 Chest x-ray continues to improve - will continue to monitor Pneumonia prophylaxis with adequate pain control, incentive spirometry, early ambulation as well as breathing treatments. RAJWINDER SIMPSON FISH FARM MANAGER Aug 29, 2021 09:32
--- NOTE | 2021-08-29 11:10 | Cardiology Progress Note ---
Progress Note-Cardiology Events since last exam Date Seen by Provider: Aug 29, 2021 Time Seen by Provider: 11:07 Events since last exam I am following her due to marginally elevated BNP level and pulmonary hypert ension. She still has some slight chest discomfort on the right due to the chest tube. She denies dyspnea, palpitations, syncope, or ankle edema. Certain portions of this document may have been dictated utilizing voice recognition technology. Inherent to this technology, typographical and gramma tical errors may exist. As much as I am diligent to identify and correct these mistakes, some errors may remain in the document. Vitals Last set of Vitals Signs Vital Signs 08/27/21 08/29/21 08/29/21 16:58 04:00 08:10 Temp 37.4 Pulse 81 Resp 18 B/P (MAP) 128/84 (99) Pulse Ox 92 O2 Delivery Room Air O2 Flow Rate 2.00 FiO2 32 Labs Labs Laboratory Tests 08/29/21 05:19 Exam Vital Signs Vital Signs Date Time Temp Pulse Resp B/P (MAP) Pulse Ox O2 Delivery O2 Flow Rate FiO2 08/29/21 08:10 37.4 81 18 128/84 (99) 92 Room Air 08/29/21 04:00 2.00 08/27/21 16:58 32 Physical Exam General: Alert. No acute distress. She is underweight. Eye: No xanthelasma. HENT: Normocephalic. Neck: Jugular venous pressure does not appear elevated. Respiratory: Lungs are clear to auscultation. Respirations are non-labored. Breath sounds are equal. Symmetrical chest wall expansion. Cardiovascular: Normal rate. Regular rhythm. No murmur. No gallop. No edema. Gastrointestinal: Soft. Normal bowel sounds. Skin: Warm. Dry. Neurologic: Alert and oriented to person, place, time. Cranial nerves 3-11 grossly intact. Psychiatric: Cooperative. Appropriate mood & affect. Labs Laboratory Tests Test 08/29/21 05:19 Range/Units White Blood Count 8.5 4.3-11.0 10^3/uL Red Blood Count 3.68 L 3.80-5.11 10^6/uL Hemoglobin 11.7 11.5-16.0 g/dL Hematocrit 34 L 35-52 % Mean Corpuscular Volume 93 80-99 fL Mean Corpuscular Hemoglobin 32 25-34 pg Mean Corpuscular Hemoglobin Concent 34 32-36 g/dL Red Cell Distribution Width 12.7 10.0-14.5 % Platelet Count 254 130-400 10^3/uL Mean Platelet Volume 9.1 9.0-12.2 fL Immature Granulocyte % (Auto) 0 % Neutrophils (%) (Auto) 76 H 42-75 % Lymphocytes (%) (Auto) 8 L 12-44 % Monocytes (%) (Auto) 8 0-12 % Eosinophils (%) (Auto) 7 0-10 % Basophils (%) (Auto) 1 0-10 % Neutrophils # (Auto) 6.5 1.8-7.8 10^3/uL Lymphocytes # (Auto) 0.7 L 1.0-4.0 10^3/uL Monocytes # (Auto) 0.7 0.0-1.0 10^3/uL Eosinophils # (Auto) 0.6 H 0.0-0.3 10^3/uL Basophils # (Auto) 0.0 0.0-0.1 10^3/uL Immature Granulocyte # (Auto) 0.0 0.0-0.1 10^3/uL Sodium Level 130 L 135-145 MMOL/L Potassium Level 3.8 3.6-5.0 MMOL/L Chloride Level 94 L 98-107 MMOL/L Carbon Dioxide Level 25 21-32 MMOL/L Anion Gap 11 5-14 MMOL/L Blood Urea Nitrogen 18 7-18 MG/DL Creatinine 0.55 L 0.60-1.30 MG/DL Estimat Glomerular Filtration Rate 91 BUN/Creatinine Ratio 33 Glucose Level 97 70-105 MG/DL Calcium Level 9.5 8.5-10.1 MG/DL Corrected Calcium 10.1 8.5-10.1 MG/DL Total Bilirubin 0.6 0.1-1.0 MG/DL Aspartate Amino Transf (AST/SGOT) 15 5-34 U/L Alanine Aminotransferase (ALT/SGPT) 9 0-55 U/L Alkaline Phosphatase 53 40-136 U/L Total Protein 6.2 L 6.4-8.2 GM/DL Albumin 3.3 3.2-4.5 GM/DL Diagnosis/Problems Diagnosis/Problems (1) Elevated brain natriuretic peptide (BNP) level Assessment & Plan: She had a mildly elevated troponin level at the time of admission but has a normal ejection fraction with no significant valvular disease. She does have evidence of grade 1 diastolic dysfunction on her echocardiogram but had not been having any significant shortness of breath until the discovery of the pneumothorax. She also has a mild degree of pulmonary hypertension and I suspect this is the explanation for the elevated troponin level. I do not believe she has heart failure. She was given 1 dose of intravenous Lasix. I would not give her any additional diuretic at this point in time. (2) Pulmonary hypertension Assessment & Plan: She had mildly elevated pulmonary pressure on her echocardio gram from this admission. I suspect this could be related to the pneumothorax. This could have in turn caused the BNP level to become elevated. Given her advanced age and frail state, I do not think she warrants any additional testing in regards to the mildly elevated pulmonary pressure. I may consider a follow- up echocardiogram as an outpatient in 6 months. (3) Frequent falls Assessment & Plan: She denies lightheadedness or syncope. Her daughter believes that she has just been losing her balance. However, this does raise a concern about possible arrhythmias. She is currently on telemetry. When she is ready for discharge, we may want to consider a 30-day outpatient external monitor. (4) Frailty Assessment & Plan: Given her current clinical status and most recent medical issues, I would consider her at least moderately frail. I would recommend conservative management at this point in time. (5) Pneumothorax on right Status: Acute Assessment & Plan: General surgery is following the patient for management of the pneumothorax. The exact cause of the pneumothorax is unclear but may be related to the rib fractures JIA ALEXANDER JR, MD Aug 29, 2021 11:10
[2021-08-29] MEDS ORDERED: LACTULOSE SYRUP 10GM/15ML (ENULOSE) 30ML UDC PO NR (11:15)
[2021-08-29] MEDS: ENOXAPARIN INJECTION 30 MG/0.3 ML SYR SC SCH (17:10)
[2021-08-29] MEDS: LACTULOSE SYRUP 10GM/15ML (ENULOSE) 30ML UDC PO SCH (19:35)
[2021-08-29] MEDS: polyethylene glycoL POWDER 17 GM (MIRALAX) PACK PO SCH (19:37)
[2021-08-30] MEDS: RT-ALBUTEROL SULF 2.5 MG/3 ML PRE-MIX VIAL INH SCH ×3 (03:05→22:15)
[2021-08-30 03:54] VITALS: BP 153/74
[2021-08-30] MEDS: ACETAMINOPHEN 500 MG TAB (TYLENOL) PO SCH ×3 (03:54→19:44)
[2021-08-30 06:04] LABS: BASOPHILS % (AUTO) 0 % (0-10); EOSINOPHILS # (AUTO) 0.5 10^3/uL (0.0-0.3); EOSINOPHILS % (AUTO) 6 % (0-10); HEMATOCRIT 34 % (35-52); HEMOGLOBIN 11.6 g/dL (11.5-16.0); LYMPHOCYTES # (AUTO) 0.7 10^3/uL (1.0-4.0); LYMPHOCYTES % (AUTO) 10 % (12-44); MEAN CORPUSCULAR HEMOGLOBIN 32 pg (25-34); MEAN CORPUSCULAR HGB CONC 34 g/dL (32-36); MEAN CORPUSCULAR VOLUME 92 fL (80-99); MEAN PLATELET VOLUME 9.4 fL (9.0-12.2); MONOCYTES # (AUTO) 0.5 10^3/uL (0.0-1.0); MONOCYTES % (AUTO) 7 % (0-12); NEUTROPHILS # (AUTO) 5.6 10^3/uL (1.8-7.8); NEUTROPHILS % (AUTO) 76 % (42-75); PLATELET COUNT 322 10^3/uL (130-400); WHITE BLOOD COUNT 7.3 10^3/uL (4.3-11.0)
[2021-08-30] MEDS: KCL 20 MEQ TAB (K-DUR) PO SCH (06:14)
[2021-08-30 06:15] LABS: ALBUMIN 3.2 GM/DL (3.2-4.5)
[2021-08-30 06:16] LABS: POTASSIUM 4.2 MMOL/L (3.6-5.0)
[2021-08-30 06:17] LABS: CALCIUM 9.6 MG/DL (8.5-10.1)
[2021-08-30 06:18] LABS: TOTAL PROTEIN 6.3 GM/DL (6.4-8.2)
[2021-08-30 06:20] LABS: BILIRUBIN,TOTAL 0.4 MG/DL (0.1-1.0)
[2021-08-30 06:22] LABS: CREATININE SERUM 0.55 MG/DL (0.60-1.30)
[2021-08-30 08:08] VITALS: BP 123/62
--- NOTE | 2021-08-30 08:29 | Diagnostic Imaging Report ---
INDICATION: Pneumothorax, follow-up. Time of Exam: 6:02 AM Correlation is made with prior study one day earlier. Right-sided Thora vent chest tube remains in place. Very small apical pneumothorax on the right is noted, measuring slightly smaller than prior exam. There is a small amount of pleural fluid on the right. Left lung is clear. Marked right convexity thoracic scoliotic curvature is noted. There is some subcutaneous gas along the right chest wall. IMPRESSION: Small right apical pneumothorax, decreased in size when compared with examination one day earlier. Dictated by: Dictated on workstation # [id number]
[2021-08-30] MEDS ORDERED: GABA300C PO (09:13)
[2021-08-30] MEDS ORDERED: LETR2.5T6 PO (09:13)
[2021-08-30] MEDS ORDERED: ASPI-1238 PO (09:15)
[2021-08-30] MEDS ORDERED: SENN-117 PO (09:15)
[2021-08-30] MEDS ORDERED: POLY17PO6 PO (09:16)
[2021-08-30] MEDS ORDERED: ACET325T38 PO (09:18)
[2021-08-30] MEDS ORDERED: LORA10TA76 PO (09:18)
[2021-08-30] MEDS ORDERED: MELA3TAB39 PO (09:21)
[2021-08-30] MEDS: DOCUSATE SODIUM 100 MG (COLACE) CAP PO SCH ×2 (09:26→19:44)
[2021-08-30] MEDS: LACTULOSE SYRUP 10GM/15ML (ENULOSE) 30ML UDC PO SCH ×2 (09:26→19:45)
[2021-08-30 11:28] VITALS: BP 118/65
[2021-08-30 13:45] VITALS: BP 118/65
--- NOTE | 2021-08-30 15:23 | Diagnostic Imaging Report ---
INDICATION: Right-sided pneumothorax. TIME OF EXAM: 3:06 p.m. COMPARISON: Correlation is made to prior chest earlier same day. FINDINGS: Right-sided Thora-Vent chest tube has been removed. There is a very small right apical pneumothorax, stable. Right-sided effusion is unchanged. Heart size is stable. Right convexity thoracic scoliotic curvature is again noted. IMPRESSION: Thora-Vent chest tube removal. There is a very small right apical pneumothorax, stable. Dictated by: Dictated on workstation # [id number]
--- NOTE | 2021-08-30 15:47 | Progress Note ---
Subjective Date Seen by a Provider: Aug 30, 2021 Time Seen by a Provider: 15:05 Subjective/Events-last exam Patient seen with Dr. Angel. Patient reports doing well. Denies any shortness of breath or difficulty breathing. Tolerating diet. Objective Exam Vital Signs Date Time Temp Pulse Resp B/P (MAP) Pulse Ox O2 Delivery O2 Flow Rate FiO2 08/30/21 13:45 38.0 69 94 21 08/30/21 11:28 38.0 82 20 118/65 (82) 94 Room Air 08/30/21 08:59 Room Air 08/30/21 08:57 94 Nasal Cannula 1.00 08/30/21 08:08 36.8 67 20 123/62 (82) 97 Nasal Cannula 2.00 08/30/21 08:00 Room Air 08/30/21 03:54 37.0 76 20 153/74 (100) 98 Nasal Cannula 1.00 08/30/21 03:04 Room Air 08/29/21 23:44 37.2 84 22 147/76 (99) 93 Nasal Cannula 2.00 08/29/21 20:31 92 Room Air 08/29/21 19:49 37.9 89 20 125/68 (87) 92 Room Air 08/29/21 19:47 93 Room Air 08/29/21 16:09 37.4 84 20 128/69 (88) 92 Room Air I & O 08/30/21 07:00 Intake Total 1780 ml Output Total 700 ml Balance 1080 ml Capillary Refill : Less Than 3 Seconds General Appearance: No Apparent Distress Neck: Normal Inspection, Supple Respiratory: Lungs Clear, No Accessory Muscle Use, No Respiratory Distress Gastrointestinal: normal bowel sounds, non tender, soft Extremity: Normal Inspection, Normal Range of Motion Neurologic/Psychiatric: Alert, Oriented x3 Skin: Normal Color, Warm/Dry Results Lab Laboratory Tests 08/30/21 05:47: White Blood Count 7.3, Red Blood Count 3.67L, Hemoglobin 11.6, Hematocrit 34L, Mean Corpuscular Volume 92, Mean Corpuscular Hemoglobin 32, Mean Corpuscular Hemoglobin Concent 34, Red Cell Distribution Width 12.7, Platelet Count 322, Mean Platelet Volume 9.4, Immature Granulocyte % (Auto) 0, Neutrophils (%) (Auto) 76H, Lymphocytes (%) (Auto) 10L, Monocytes (%) (Auto) 7, Eosinophils (%) (Auto) 6, Basophils (%) (Auto) 0, Neutrophils # (Auto) 5.6, Lymphocytes # (Auto) 0.7L, Monocytes # (Auto) 0.5, Eosinophils # (Auto) 0.5H, Basophils # (Auto) 0.0, Immature Granulocyte # (Auto) 0.0, Sodium Level 132L, Potassium Level 4.2, Chloride Level 96L, Carbon Dioxide Level 26, Anion Gap 10, Blood Urea Nitrogen 14, Creatinine 0.55L, Estimat Glomerular Filtration Rate 91, BUN/Creatinine Ratio 25, Glucose Level 93, Calcium Level 9.6, Corrected Calcium 10.2H, Total Bilirubin 0.4, Aspartate Amino Transf (AST/SGOT) 21, Alanine Aminotransferase (ALT/SGPT) 16, Alkaline Phosphatase 57, Total Protein 6.3L, Albumin 3.2 Assessment/Plan Assessment/Plan Assess & Plan/Chief Complaint An 81-year-old female with a history of frequent falls with a same level fall, shortness of breath, right pneumothorax, posterolateral right rib fractures 6 through 8. VSS Chest x-ray better today - will proceed with removal of thoravent chest tube and proceed with post removal chest x-ray - vasaline gauze, 4x4 gauze dressing applied, secured with elastic tape Pneumonia prophylaxis with adequate pain control, incentive spirometry, early ambulation as well as breathing treatments Ok to [place] home from surgical standpoint RAJWINDER SIMPSON APRN Aug 30, 2021 15:47
[2021-08-30 16:00] VITALS: BP 143/79
--- NOTE | 2021-08-30 17:13 | Progress Note ---
Subjective Subjective/Events-last exam Pt states she is feeling pretty well, denies short of breath, but admits a lot of pain from her rib fractures. she is sitting up in chair in home clothing at time of my exam. Objective Exam Last Set of Vital Signs Vital Signs Date Time Temp Pulse Resp B/P (MAP) Pulse Ox O2 Delivery O2 Flow Rate FiO2 08/30/21 13:45 38.0 69 94 21 08/30/21 11:28 20 118/65 (82) Room Air 08/30/21 08:57 1.00 Capillary Refill : Less Than 3 Seconds I&O Intake and Output 08/30/21 00:00 Intake Total 1880 ml Balance 1880 ml Intake Oral 1880 ml # Voids 12 # Bowel Movements 1 General: Alert Lungs: Clear to Auscultation, Normal Air Movement Heart: Regular Rate, No Murmurs Neuro: Normal Speech Psych/Mental Status: Mood NL Results/Procedures Lab Laboratory Tests 08/30/21 05:47: White Blood Count 7.3, Red Blood Count 3.67L, Hemoglobin 11.6, Hematocrit 34L, Mean Corpuscular Volume 92, Mean Corpuscular Hemoglobin 32, Mean Corpuscular Hemoglobin Concent 34, Red Cell Distribution Width 12.7, Platelet Count 322, Mean Platelet Volume 9.4, Immature Granulocyte % (Auto) 0, Neutrophils (%) (Auto) 76H, Lymphocytes (%) (Auto) 10L, Monocytes (%) (Auto) 7, Eosinophils (%) (Auto) 6, Basophils (%) (Auto) 0, Neutrophils # (Auto) 5.6, Lymphocytes # (Auto) 0.7L, Monocytes # (Auto) 0.5, Eosinophils # (Auto) 0.5H, Basophils # (Auto) 0.0, Immature Granulocyte # (Auto) 0.0, Sodium Level 132L, Potassium Level 4.2, Chloride Level 96L, Carbon Dioxide Level 26, Anion Gap 10, Blood Urea Nitrogen 14, Creatinine 0.55L, Estimat Glomerular Filtration Rate 91, BUN/Creatinine Ratio 25, Glucose Level 93, Calcium Level 9.6, Corrected Calcium 10.2H, Total Bilirubin 0.4, Aspartate Amino Transf (AST/SGOT) 21, Alanine Aminotransferase (ALT/SGPT) 16, Alkaline Phosphatase 57, Total Protein 6.3L, Albumin 3.2 Assessment/Plan Assessment/Plan (1) Frequent falls Assessment & Plan: PT to eval for home safety (2) Ribs, multiple fractures Status: Acute Qualifiers: Qualified Codes: S22.41XA - Multiple fractures of ribs, right side, initial encounter for closed fracture (3) Pneumothorax on right Status: Acute Assessment & Plan: Thoravent placed initially, appreciate Surgery recommendations, possible removal today. (4) Hyponatremia Status: Acute Assessment & Plan: Improving (5) Elevated brain natriuretic peptide (BNP) level Status: Acute Assessment & Plan: Cardiology consulted, echo done without significant acute findings, grade 1 diastolic dysfunction noted. Appreciate recommendations. (6) DVT prophylaxis Status: Acute Assessment & Plan: Enoxaparin RACHEL MARTINEZ MD Aug 30, 2021 17:13
[2021-08-30] MEDS ORDERED: HYDR-3817 PO (17:44)
--- NOTE | 2021-08-30 17:45 | Discharge Inst-Surgical ---
D/C Lap Instructions-EDGAR New, Converted, or Re-Newed RX: RX on Chart Follow Up Appt in 1 week 1 view chest xr before visit. Activity as tolerated No driving for 24 hours No driving while on pain medications Incentive Spirometry use every 2 hours while awake Regular Diet Symptoms to Report: Fever over 101 degree F, Nausea/Vomiting Infection Signs and Symptoms to report: Increased redness, Foul odor of wound, Increased drainage Bathing instructions: May shower Operative Area Clean/Dry; Keep incision clean/dry If any problems/questions: Contact your physician or go to Emergency Room CANDICE HERNÁNDEZ MD Aug 30, 2021 17:45
[2021-08-30] MEDS: ENOXAPARIN INJECTION 30 MG/0.3 ML SYR SC SCH (18:14)
--- NOTE | 2021-08-30 18:52 | Cardiology Progress Note ---
Progress Note-Cardiology Events since last exam Date Seen by Provider: Aug 30, 2021 Time Seen by Provider: 18:50 Events since last exam I am seeing her due to a marginally elevated BNP level at the time of admission. She was up ambulating in [place] on her own with a walker. She hopes to go home tomorrow. She denies chest discomfort, dyspnea, palpitations, syncope, or ankle edema. Certain portions of this document may have been dictated utilizing voice recognition technology. Inherent to this technology, typographical and grammatical errors may exist. As much as I am diligent to identify and correct these mistakes, some errors may remain in the document. Vitals Last set of Vitals Signs Vital Signs 08/30/21 08/30/21 08/30/21 08:57 13:45 16:00 Temp 35.9 Pulse 79 Resp 20 B/P (MAP) 143/79 (100) Pulse Ox 92 O2 Delivery Room Air O2 Flow Rate 1.00 FiO2 21 Labs Labs Laboratory Tests 08/30/21 05:47 Exam Vital Signs Vital Signs Date Time Temp Pulse Resp B/P (MAP) Pulse Ox O2 Delivery O2 Flow Rate FiO2 08/30/21 16:00 35.9 79 20 143/79 (100) 92 Room Air 08/30/21 13:45 21 08/30/21 08:57 1.00 Physical Exam General: Alert. No acute distress. Eye: No xanthelasma. HENT: Normocephalic. Neck: Jugular venous pressure does not appear elevated. Respiratory: Lungs are clear to auscultation. Respirations are non-labored. Breath sounds are equal. Symmetrical chest wall expansion. Cardiovascular: Normal rate. Regular rhythm. No murmur. No gallop. No edema. Gastrointestinal: Soft. Normal bowel sounds. Skin: Warm. Dry. She has significant scoliosis. Neurologic: Alert and oriented to person, place, time. Cranial nerves 3-11 grossly intact. Psychiatric: Cooperative. Appropriate mood & affect. Labs Laboratory Tests Test 08/30/21 05:47 Range/Units White Blood Count 7.3 4.3-11.0 10^3/uL Red Blood Count 3.67 L 3.80-5.11 10^6/uL Hemoglobin 11.6 11.5-16.0 g/dL Hematocrit 34 L 35-52 % Mean Corpuscular Volume 92 80-99 fL Mean Corpuscular Hemoglobin 32 25-34 pg Mean Corpuscular Hemoglobin Concent 34 32-36 g/dL Red Cell Distribution Width 12.7 10.0-14.5 % Platelet Count 322 130-400 10^3/uL Mean Platelet Volume 9.4 9.0-12.2 fL Immature Granulocyte % (Auto) 0 % Neutrophils (%) (Auto) 76 H 42-75 % Lymphocytes (%) (Auto) 10 L 12-44 % Monocytes (%) (Auto) 7 0-12 % Eosinophils (%) (Auto) 6 0-10 % Basophils (%) (Auto) 0 0-10 % Neutrophils # (Auto) 5.6 1.8-7.8 10^3/uL Lymphocytes # (Auto) 0.7 L 1.0-4.0 10^3/uL Monocytes # (Auto) 0.5 0.0-1.0 10^3/uL Eosinophils # (Auto) 0.5 H 0.0-0.3 10^3/uL Basophils # (Auto) 0.0 0.0-0.1 10^3/uL Immature Granulocyte # (Auto) 0.0 0.0-0.1 10^3/uL Sodium Level 132 L 135-145 MMOL/L Potassium Level 4.2 3.6-5.0 MMOL/L Chloride Level 96 L 98-107 MMOL/L Carbon Dioxide Level 26 21-32 MMOL/L Anion Gap 10 5-14 MMOL/L Blood Urea Nitrogen 14 7-18 MG/DL Creatinine 0.55 L 0.60-1.30 MG/DL Estimat Glomerular Filtration Rate 91 BUN/Creatinine Ratio 25 Glucose Level 93 70-105 MG/DL Calcium Level 9.6 8.5-10.1 MG/DL Corrected Calcium 10.2 H 8.5-10.1 MG/DL Total Bilirubin 0.4 0.1-1.0 MG/DL Aspartate Amino Transf (AST/SGOT) 21 5-34 U/L Alanine Aminotransferase (ALT/SGPT) 16 0-55 U/L Alkaline Phosphatase 57 40-136 U/L Total Protein 6.3 L 6.4-8.2 GM/DL Albumin 3.2 3.2-4.5 GM/DL Diagnosis/Problems Diagnosis/Problems (1) Elevated brain natriuretic peptide (BNP) level Status: Acute Assessment & Plan: She had a mildly elevated troponin level at the time of admission but has a normal ejection fraction with no significant valvular disease. She does have evidence of grade 1 diastolic dysfunction on her echocardiogram but had not been having any significant shortness of breath until the discovery of the pneumothorax. She also has a mild degree of pulmonary hypertension and I suspect this is the explanation for the elevated troponin level. I do not believe she has heart failure. She was given 1 dose of intravenous Lasix. I would not give her any additional diuretic at this point in time. (2) Pulmonary hypertension Assessment & Plan: She had mildly elevated pulmonary pressure on her echocardiogram from this admission. I suspect this could be related to the pneumothorax. This could have in turn caused the BNP level to become elevated. Given her advanced age and frail state, I do not think she warrants any a dditional testing in regards to the mildly elevated pulmonary pressure. I may consider a follow-up echocardiogram as an outpatient in 6 months. (3) Frequent falls Assessment & Plan: She denies lightheadedness or syncope. Her daughter believes that she has just been losing her balance. However, this does raise a concern about possible arrhythmias. She is currently on telemetry. When she is ready for discharge, I will try to arrange for a 2-week Zio patch event monitor and hopefully we can get this applied before she goes back home to [place]. (4) Frailty Assessment & Plan: Given her current clinical status and most recent medical issues, I would consider her at least moderately frail. I would recommend conservative management at this point in time. (5) Pneumothorax on right Status: Acute Assessment & Plan: General surgery is following the patient for management of the pneumothorax. The exact cause of the pneumothorax is unclear but may be related to the rib fractures JIA ALEXANDER JR, MD Aug 30, 2021 18:52
[2021-08-30] MEDS: polyethylene glycoL POWDER 17 GM (MIRALAX) PACK PO SCH (19:45)
[2021-08-30 19:51] VITALS: BP 124/68
[2021-08-31 00:43] VITALS: BP 149/80
[2021-08-31] MEDS: ACETAMINOPHEN 500 MG TAB (TYLENOL) PO SCH ×2 (02:50→12:27)
--- NOTE | 2021-08-31 05:37 | Progress Note - Hospitalist ---
Subjective HPI/CC On Admission Date Seen by Provider: Aug 31, 2021 Time Seen by Provider: 10:00 Chief complaint: Right-sided pneumothorax History present illness: This is an 81-year-old female who resides in assisted living who sustained a fall 2 days prior and subsequent right rib pain was becoming short of breath with pulse ox of 85% she was assessed in the ER to have right-sided subcutaneous air with crepitus chest x-ray showed pneumothorax and Thora vent was placed. Dr. HERNÁNDEZ's been consulted. She reports the rib pain is much improved. Tylenol only is given and hydrocodone is ordered but she is hesitant due to constipating effects. I did start her on MiraLAX. Family at the bedside. Patient has severe scoliosis and chest x-ray shows COPD changes. Objective Exam Vital Signs Vital Signs Date Time Temp Pulse Resp B/P (MAP) Pulse Ox O2 Delivery O2 Flow Rate FiO2 08/31/21 11:54 36.4 73 20 121/63 95 Room Air 1.00 08/30/21 13:45 21 Capillary Refill : Less Than 3 Seconds Results/Procedures Lab Laboratory Tests 08/31/21 06:05 Patient resulted labs reviewed. Assessment/Plan Assessment and Plan Assess & Plan/Chief Complaint Assessment: Right-sided pneumothorax status post Thora vent placement Fall with right rib fractures causing pneumothorax Chronic constipation History of breast cancer Severe scoliosis COPD changes on chest x-ray Congestive heart failure? Plan: Consult Dr. Mendez O2 [address] HERNÁNDEZ for chest tube management Pain control 08/29/2021: Bowel regimen Pain control Ambulate Diagnosis/Problems Diagnosis/Problems (1) Pneumothorax on right Status: Acute SRIRAM BIANCHI DO Aug 31, 2021 05:37
[2021-08-31] MEDS: RT-ALBUTEROL SULF 2.5 MG/3 ML PRE-MIX VIAL INH SCH ×2 (05:49→07:30)
[2021-08-31 06:30] LABS: BASOPHILS % (AUTO) 0 % (0-10); EOSINOPHILS # (AUTO) 0.4 10^3/uL (0.0-0.3); EOSINOPHILS % (AUTO) 6 % (0-10); HEMATOCRIT 35 % (35-52); HEMOGLOBIN 11.7 g/dL (11.5-16.0); LYMPHOCYTES # (AUTO) 0.8 10^3/uL (1.0-4.0); LYMPHOCYTES % (AUTO) 12 % (12-44); MEAN CORPUSCULAR HEMOGLOBIN 32 pg (25-34); MEAN CORPUSCULAR HGB CONC 34 g/dL (32-36); MEAN CORPUSCULAR VOLUME 93 fL (80-99); MONOCYTES # (AUTO) 0.5 10^3/uL (0.0-1.0); MONOCYTES % (AUTO) 7 % (0-12); NEUTROPHILS # (AUTO) 4.9 10^3/uL (1.8-7.8); NEUTROPHILS % (AUTO) 74 % (42-75); PLATELET COUNT 306 10^3/uL (130-400); WHITE BLOOD COUNT 6.6 10^3/uL (4.3-11.0)
[2021-08-31] MEDS: KCL 20 MEQ TAB (K-DUR) PO SCH (06:38)
[2021-08-31 06:48] LABS: ALBUMIN 3.3 GM/DL (3.2-4.5)
[2021-08-31 06:49] LABS: POTASSIUM 4.1 MMOL/L (3.6-5.0)
[2021-08-31 06:50] LABS: CALCIUM 9.7 MG/DL (8.5-10.1)
[2021-08-31 06:51] LABS: TOTAL PROTEIN 6.6 GM/DL (6.4-8.2)
[2021-08-31 06:53] LABS: BILIRUBIN,TOTAL 0.4 MG/DL (0.1-1.0)
[2021-08-31 06:55] LABS: CREATININE SERUM 0.54 MG/DL (0.60-1.30)
[2021-08-31 07:30] VITALS: BP 121/63
[2021-08-31] MEDS: LACTULOSE SYRUP 10GM/15ML (ENULOSE) 30ML UDC PO SCH (08:38)
[2021-08-31] MEDS: DOCUSATE SODIUM 100 MG (COLACE) CAP PO SCH (08:38)
--- NOTE | 2021-08-31 09:39 | Physical Therapy Evaluation ---
PT Evaluation-General Medical Diagnosis Admission Date Aug 27, 2021 at 15:55 Medical Diagnosis: SOA/pneumonia Onset Date: Aug 27, 2021 Therapy Diagnosis Therapy Diagnosis: debility/weakness Precautions Precautions/Isolations: Fall Prevention, Standard Precautions Referral Physician: Boubacar Reason for Referral: Evaluation/Treatment Medical History Pertinent Medical History: Neuropathy Current History ER secondary to fall on right side resulting in right flank pain/rib fractures Reviewed History: Yes Social History Home: Assisted Living Prior Prior Level of Function SCALE: Activities may be completed with or without assistive devices. 1-Vyzpnpmtdj-gotaufw completes the activity by him/herself with no assistance from a helper. 5-Set-up or Clean-up Assistance-helper sets up or cleans up; patient completes activity. [place] assists only prior to or following the activity. 4-Supervision or Touching Assistance-helper provides verbal cues and/or touching/steadying and/or contact guard assistance as patient completes activity. Assistance may be provided throughout the activity or intermittently. 3-Partial/Moderate Assistance-helper does LESS THAN HALF the effort. [place] lifts, holds or supports trunk or limbs, but provides less than half the effort. 2-Substantial/Maximal Assistance-helper does MORE THAN HALF the effort. [place] lifts or holds trunk or limbs and provides more than half the effort. 5-Tarcpviwc-iciokh does ALL the effort. Patient does none of the effort to complete the activity. Or, the assistance of 2 or more helpers is required for the patient to complete the activity. If activity was not attempted, code reason: 7-Patient Refused. 9-Not Applicable-not attempted and the patient did not perform the activity before the current illness, exacerbation or injury. 10-Not Attempted due to Environmental Limitations-(lack of equipment, weather restraints, etc.). 88-Not Attempted due to Medical Conditions or Safety Concerns. Bed Mobility: 6 Transfers (B,C,W/C): 6 Gait: 6 Indoor Mobility (Ambulation): Independent Prior Devices Use: Walker PT Evaluation-Current Subjective Patient agrees to PT. Objective Patient Orientation: Person, Time, Situation ROM/Strength ROM Lower Extremities bilateral LE WFL Strength Lower Extremities 3+/5 grossly bilateral LE Integumentary/Posture Bowel Incontinence: No Bladder Incontinence: No Posture kyphotic with scoliosis Neuromuscular (Tone, Coordination, Reflexes) grossly intact Sensory Vision: Wears Glasses Hearing: Impaired Transfers Sit to Stand (QC): 4 Gait Does the Patient Walk?: Yes Mode of Locomotion: Walk Anticipated Mode of Locomotion: Walk Walk 10 feet (QC): 4 Walk 50 ft with 2 Turns(QC): 4 Walk 150 ft (QC): 4 Distance: 250' Gait Assistive Device: FWW Comments/Gait Description SBA with noted NBOS/functional gait sequence Balance Sitting Static: Normal Sitting Dynamic: Normal Standing Static: Fair Standing Dynamic: Fair Assessment/Needs 81 y.o. female, will benefit from skilled PT to address functional strength and mobility to improve current LOF. Patient displays NBOS with ambulation with FWW. Rehab Potential: Fair PT Hospital Account Manager Goals Senior Living Goals PT Senior Living Goals Time Frame: Sep 11, 2021 Roll Left & Right (QC): 6 Sit to Lying (QC): 6 Lying-Sitting on Side/Bed(QC): 6 Sit to Stand (QC): 6 Chair/Xfz-ls-Ubmdj Xfer(QC): 6 Toilet Transfer (QC): 6 Walk 10 feet (QC): 6 Walk 50ft with 2 Turns (QC): 6 Walk 150 ft (QC): 6 PT Plan Problem List Problem List: Activity Tolerance, Functional Strength, Safety, Balance, Gait, Transfer, Bed Mobility Treatment/Plan Treatment Plan: Continue Plan of Care Treatment Plan: Bed Mobility, Education, Functional Activity Shashank, Functional Strength, Gait, Safety, Therapeutic Exercise, Transfers Treatment Duration: Sep 11, 2021 Frequency: 6 times per week Estimated Hrs Per Day: .25 hour per day Patient and/or Family Agrees t: Yes Time/GCodes Time In: 812 Time Out: 822 Total Billed Treatment Time: 10 [facility] Aug 31, 2021 09:39
--- NOTE | 2021-08-31 10:27 | Cardiology Progress Note ---
Progress Note-Cardiology Events since last exam Date Seen by Provider: Aug 31, 2021 Time Seen by Provider: 10:25 Events since last exam I am following her due to marginally elevated BNP level at the time of admission as well as frequent falls at home prior to admission. Her chest tube was removed. She has been ambulating with a walker. She denies chest discomfort, dyspnea, palpitations, syncope, or ankle edema. She hopes to be transferred to an inpatient rehabilitation facility in [facility]. Certain portions of this document may have been dictated utilizing voice recognition technology. Inherent to this technology, typographical and grammatical errors may exist. As much as I am diligent to identify and correct these mistakes, some errors may remain in the document. Vitals Last set of Vitals Signs Vital Signs 08/30/21 08/31/21 13:45 11:54 Temp 36.4 Pulse 73 Resp 20 B/P (MAP) 121/63 Pulse Ox 95 O2 Delivery Room Air O2 Flow Rate 1.00 FiO2 21 Labs Labs Laboratory Tests 08/31/21 06:05 Exam Vital Signs Vital Signs Date Time Temp Pulse Resp B/P (MAP) Pulse Ox O2 Delivery O2 Flow Rate FiO2 08/31/21 11:54 36.4 73 20 121/63 95 Room Air 1.00 08/30/21 13:45 21 Physical Exam General: Alert. No acute distress. She is underweight and appears frail. Eye: No xanthelasma. HENT: Normocephalic. Neck: Jugular venous pressure does not appear elevated. Respiratory: Lungs are clear to auscultation. Respirations are non-labored. Breath sounds are equal. Symmetrical chest wall expansion. Cardiovascular: Normal rate. Regular rhythm. No murmur. No gallop. No edema. Gastrointestinal: Soft. Normal bowel sounds. Skin: Warm. Dry. Severe scoliosis. Neurologic: Alert and oriented to person, place, time. Cranial nerves 3-11 grossly intact. Psychiatric: Cooperative. Appropriate mood & affect. Labs Laboratory Tests Test 08/31/21 06:05 Range/Units White Blood Count 6.6 4.3-11.0 10^3/uL Red Blood Count 3.71 L 3.80-5.11 10^6/uL Hemoglobin 11.7 11.5-16.0 g/dL Hematocrit 35 35-52 % Mean Corpuscular Volume 93 80-99 fL Mean Corpuscular Hemoglobin 32 25-34 pg Mean Corpuscular Hemoglobin Concent 34 32-36 g/dL Red Cell Distribution Width 12.7 10.0-14.5 % Platelet Count 306 130-400 10^3/uL Mean Platelet Volume 9.0 9.0-12.2 fL Immature Granulocyte % (Auto) 1 % Neutrophils (%) (Auto) 74 42-75 % Lymphocytes (%) (Auto) 12 12-44 % Monocytes (%) (Auto) 7 0-12 % Eosinophils (%) (Auto) 6 0-10 % Basophils (%) (Auto) 0 0-10 % Neutrophils # (Auto) 4.9 1.8-7.8 10^3/uL Lymphocytes # (Auto) 0.8 L 1.0-4.0 10^3/uL Monocytes # (Auto) 0.5 0.0-1.0 10^3/uL Eosinophils # (Auto) 0.4 H 0.0-0.3 10^3/uL Basophils # (Auto) 0.0 0.0-0.1 10^3/uL Immature Granulocyte # (Auto) 0.0 0.0-0.1 10^3/uL Sodium Level 131 L 135-145 MMOL/L Potassium Level 4.1 3.6-5.0 MMOL/L Chloride Level 96 L 98-107 MMOL/L Carbon Dioxide Level 26 21-32 MMOL/L Anion Gap 9 5-14 MMOL/L Blood Urea Nitrogen 13 7-18 MG/DL Creatinine 0.54 L 0.60-1.30 MG/DL Estimat Glomerular Filtration Rate 91 BUN/Creatinine Ratio 24 Glucose Level 87 70-105 MG/DL Calcium Level 9.7 8.5-10.1 MG/DL Corrected Calcium 10.3 H 8.5-10.1 MG/DL Total Bilirubin 0.4 0.1-1.0 MG/DL Aspartate Amino Transf (AST/SGOT) 18 5-34 U/L Alanine Aminotransferase (ALT/SGPT) 15 0-55 U/L Alkaline Phosphatase 68 40-136 U/L Total Protein 6.6 6.4-8.2 GM/DL Albumin 3.3 3.2-4.5 GM/DL Diagnosis/Problems Diagnosis/Problems (1) Elevated brain natriuretic peptide (BNP) level Status: Acute Assessment & Plan: She had a mildly elevated BNP level at the time of admission but has a normal ejection fraction with no significant valvular disease. She does have evidence of grade 1 diastolic dysfunction on her echocardiogram but had not been having any significant shortness of breath until the discovery of the pneumothorax. She also has a mild degree of pulmonary hypertension and I suspect this is the explanation for the elevated BNP level. I do not believe she has heart failure. She was given 1 dose of intravenous Lasix. I would not give her any additional diuretic at this point in time. (2) Pulmonary hypertension Assessment & Plan: She had mildly elevated pulmonary pressure on her echocardiogram from this admission. I suspect this could be related to the pneumothorax. This could have in turn caused the BNP level to become elevated. Given her advanced age and frail state, I do not think she warrants any additional testing in regards to the mildly elevated pulmonary pressure. I may consider a follow-up echocardiogram as an outpatient in 6 months. (3) Frequent falls Assessment & Plan: She denies lightheadedness or syncope. She may be getting dizzy spells. Her daughter believes that she has just been losing her balance. However, this does raise a concern about possible arrhythmias. There is no evidence of Jqjfu-[id number]-Zyekr, Brugada syndrome, or prolonged QT on her resting electrocardiogram. I will try to arrange for a 2-week Zio patch event monitor and hopefully we can get this applied before she goes back home to [place]. (4) Frailty Assessment & Plan: Given her current clinical status and most recent medical issues, I would consider her at least moderately frail. I would recommend conservative management at this point in time. (5) Pneumothorax on right Status: Acute Assessment & Plan: General surgery is following the patient for management of the pneumothorax. The chest tube was removed. The exact cause of the pneumothorax is unclear but may be related to the rib fractures JIA ALEXANDER JR, MD Aug 31, 2021 10:27
[2021-08-31 11:54] VITALS: BP 121/63
--- NOTE | 2021-08-31 14:13 | Discharge Summary ---
Discharge Summary Hospital Course Was the Problem List Reviewed?: Yes Problems/Dx: (1) Elevated brain natriuretic peptide (BNP) level Status: Acute (2) Pulmonary hypertension (3) Frequent falls (4) Frailty (5) Pneumothorax on right Status: Acute Hospital Course Date of Admission: Aug 27, 2021 at 15:55 Admission Diagnosis : Family Physician/Provider: [facility] Date of Discharge: 08/31/21 Discharge Diagnosis: right sided PTX, PHTN, Scoliosis Hospital Course: Pt had a lengthy hospital course for 5 days after she had a right sided pneumothorax with rib fractures, after a fall 3 days prior to presenting to [facility]. Thoravent was placed. Dr. Hernández managed that. Pneumothorax resolved. Pt was deemed stable for discharge. Dr. Mendez was consulted for what appeared to be volume overload from pulmonary hypertension from the pneumothorax. That should improve naturally. Labs and Pending Lab Test: Laboratory Tests 08/31/21 06:05: White Blood Count 6.6, Red Blood Count 3.71L, Hemoglobin 11.7, Hematocrit 35, Mean Corpuscular Volume 93, Mean Corpuscular Hemoglobin 32, Mean Corpuscular Hemoglobin Concent 34, Red Cell Distribution Width 12.7, Platelet Count 306, Mean Platelet Volume 9.0, Immature Granulocyte % (Auto) 1, Neutrophils (%) (Auto) 74, Lymphocytes (%) (Auto) 12, Monocytes (%) (Auto) 7, Eosinophils (%) (Auto) 6, Basophils (%) (Auto) 0, Neutrophils # (Auto) 4.9, Lymphocytes # (Auto) 0.8L, Monocytes # (Auto) 0.5, Eosinophils # (Auto) 0.4H, Basophils # (Auto) 0.0, Immature Granulocyte # (Auto) 0.0, Sodium Level 131L, Potassium Level 4.1, Chloride Level 96L, Carbon Dioxide Level 26, Anion Gap 9, Blood Urea Nitrogen 13, Creatinine 0.54L, Estimat Glomerular Filtration Rate 91, BUN/Creatinine Ratio 24, Glucose Level 87, Calcium Level 9.7, Corrected Calcium 10.3H, Total Bilirubin 0.4, Aspartate Amino Transf (AST/SGOT) 18, Alanine Aminotransferase (ALT/SGPT) 15, Alkaline Phosphatase 68, Total Protein 6.6, Albumin 3.3 Home Meds Active Hydrocodone-Acetamin 7.5-325 (Hydrocodone/Acetaminophen) 7.5 Mg-325 Mg Tablet 1 Each PO Q4H Reported Melatonin 3 Mg Tablet 6 Mg PO HS PRN TAKES 2 (3MG) TABS Tylenol (Acetaminophen) 325 Mg Tablet 325-650 Mg PO Q4H PRN TAKES 1 TO 2 (325MG) TABS Claritin (Loratadine) 10 Mg Tablet 10 Mg PO DAILY Miralax (Polyethylene Glycol 3350) 17 Gram Powd.pack 17 Gm PO BID MIXED IN 8OZ OF LIQUID Aspirin EC (Aspirin) 81 Mg Tablet.dr 81 Mg PO DAILY Stimulant Laxative Plus Tablet (Sennosides/Docusate Sodium) 8.6 Mg-50 Mg Tablet 2 Each PO BID Neurontin (Gabapentin) 300 Mg Capsule 300 Mg PO BID Letrozole 2.5 Mg Tablet 2.5 Mg PO 1999 Assessment/Pt Instructions pcp 1 week Discharge Planning: <30 minutes discharge planning Discharge Instructions Discharge Diet: No Restrictions Discharge Physical Examination Vital Signs Vital Signs Date Time Temp Pulse Resp B/P (MAP) Pulse Ox O2 Delivery O2 Flow Rate FiO2 08/31/21 11:54 36.4 73 20 121/63 95 Room Air 1.00 08/30/21 13:45 21 General Appearance: No Apparent Distress, WD/WN, Chronically ill Allergies: Coded Allergies: No Known Drug Allergies (Unverified , 08/27/21) Discharge Summary Date of Admission Aug 27, 2021 at 15:55 Date of Discharge Aug 31, 2021 at 13:36 Admission Diagnosis Assessment: Right-sided pneumothorax status post Thora vent placement Fall with right rib fractures causing pneumothorax Chronic constipation History of breast cancer Severe scoliosis COPD changes on chest x-ray Congestive heart failure? Plan: Consult Dr. Mendez O2 Consult Dr. HERNÁNDEZ for chest tube management Pain control Discharge Diagnosis Assessment: Right-sided pneumothorax status post Thora vent placement Fall with right rib fractures causing pneumothorax Chronic constipation History of breast cancer Severe scoliosis COPD changes on chest x-ray Congestive heart failure? Plan: Consult Dr. Mendez O2 Consult Dr. HERNÁNDEZ for chest tube management Pain control 08/29/2021: Bowel regimen Pain control Ambulate (1) Elevated brain natriuretic peptide (BNP) level Status: Acute Assessment & Plan: She had a mildly elevated troponin level at the time of admission but has a normal ejection fraction with no significant valvular disease. She does have evidence of grade 1 diastolic dysfunction on her echocardiogram but had not been having any significant shortness of breath until the discovery of the pneumothorax. She also has a mild degree of pulmonary hypertension and I suspect this is the explanation for the elevated troponin level. I do not believe she has heart failure. She was given 1 dose of intravenous Lasix. I would not give her any additional diuretic at this point in time. (2) Pulmonary hypertension Assessment & Plan: She had mildly elevated pulmonary pressure on her echocardiogram from this admission. I suspect this could be related to the pneumothorax. This could have in turn caused the BNP level to become elevated. Given her advanced age and frail state, I do not think she warrants any additional testing in regards to the mildly elevated pulmonary pressure. I may consider a follow-up echocardiogram as an outpatient in 6 months. (3) Frequent falls Assessment & Plan: She denies lightheadedness or syncope. She may be getting dizzy spells. Her daughter believes that she has just been losing her balance. However, this does raise a concern about possible arrhythmias. There is no evidence of Oqern-Nvarmomoe-Codan, Brugada syndrome, or prolonged QT on her resting electrocardiogram. I will try to arrange for a 2-week Zio patch event monitor and hopefully we can get this applied before she goes back home to [place]. (4) Frailty Assessment & Plan: Given her current clinical status and most recent medical issues, I would consider her at least moderately frail. I would recommend conservative management at this point in time. (5) Pneumothorax on right Status: Acute Assessment & Plan: General surgery is following the patient for management of the pneumothorax. The exact cause of the pneumothorax is unclear but may be related to the rib fractures SRIRAM BIANCHI DO Aug 31, 2021 14:13
--- NOTE | 2021-08-31 17:02 | Physician Query Clarification ---
Physician Query-General Query to Physician: The medical record reflects the following clinical evidence: Clinical Indicators: 02 sat 85% on RA, 93% on 3L (P/F= 238 and 216), Nursing documentation of SOA at rest on admission, RR 20-26, was able to wean O2 multiple attempts to wean 02, 02 sats 90 on RA, after Chest tubeplacement, Improved to 95% on RA just prior to discharge. Risk Factor(s): Multiple Rib fractures, Pneumothorax, No home O2 use Treatment: Supplemental 02 up to 3L, Thoravent, Close Respiratory monitoring, frequent Xrays, 1. Acute respiratory failure, with hypoxia in the setting of Rib fractures and pneumothorax, present on admission, resolved 2. Other explanation of clinical findings 3. Unable to determine (no explanation for clinical findings) Please clarify and document your clinical opinion in the progress notes and discharge summary including the definitive and/or presumptive diagnosis, (suspected or probable), related to the above clinical findings. Please include clinical findings supporting your diagnosis. Caroline Montelongo MSN, RN Clinical Truck Shop Mechanic [phone] [email or web address] PHYSICIAN RESPONSE: Based on the clinical findings in the record, please respond to the query above on this document as an addendum. Physician Response: Physician Response 1 If you have questions please contact: Software Systems Analyst: Ext: Thank you for your time and cooperation. Clinical Truck Shop Mechanic/Software Systems Analyst This is a permanent part of the medical rec ord CAROLINE MONTELONGO Aug 31, 2021 17:02 SRIRAM BIANCHI DO Aug 31, 2021 17:39
== END 2021-08-31 13:36 | DRG 199 ==
LOC: EDUNIT# 10:49 → ER FS 10:53 → 4TH 15:55
PROVIDERS: ADMIT Internal Medicine; ATTEND Internal Medicine
PROC: 0W9930Z Drainage of Right Pleural Cavity with Drainage Device, Percutaneous Approach (ICD-10-PCS; principal; 2021-08-27)
DX: S27.0XXA Traumatic pneumothorax, initial encounter (principal); J96.01 Acute respiratory failure with hypoxia; S22.41XA Multiple fractures of ribs, right side, initial encounter for closed fracture; Z91.81 History of falling; I27.20 Pulmonary hypertension, unspecified; M81.0 Age-related osteoporosis without current pathological fracture; K59.09 Other constipation; G62.9 Polyneuropathy, unspecified; R27.0 Ataxia, unspecified; J44.9 Chronic obstructive pulmonary disease, unspecified; M41.9 Scoliosis, unspecified; H54.7 Unspecified visual loss; Z87.891 Personal history of nicotine dependence; Z85.3 Personal history of malignant neoplasm of breast; W19.XXXA Unspecified fall, initial encounter
CPT/HCPCS: 32551; 36415; 71045; 71046; 71260; 80053; 82805; 83880; 84484; 85007; 85025; 85027; 93005; 93306; 94640; 94664; 94760; 99291; Q9967

== ENCOUNTER → 2021-08-31 | Outpatient (CLI) | payer MEDICARE ==
[~2021-08-31] MED LIST: ACET325T38 PO; ASPI-1238 PO; GABA300C PO; HYDR-3817 PO; LETR2.5T6 PO; LORA10TA76 PO; MELA3TAB39 PO; POLY17PO6 PO; SENN-117 PO
== END ==
LOC: CARD 13:46
PROVIDERS: ATTEND Internal Medicine Cardiovascular Disease
DX: R42 Dizziness and giddiness (principal)

== ENCOUNTER → 2021-09-03 | Outpatient (CLI) | payer MEDICARE ==
--- NOTE | 2021-09-03 11:47 | Diagnostic Imaging Report ---
CLINICAL INDICATION: Patient with right rib fracture and pneumothorax. Status post chest tube placement. Portable chest x-ray upright. COMPARISON: Portable chest x-ray dated 08/30/2021. FINDINGS: Again seen severe scoliosis with levoscoliosis of the thoracolumbar spine and right curvature of the mid to lower thoracic spine. Fracture of the posterior right T5 rib is seen and fractures of the lateral aspect of the right T6 and T8 ribs are noted. Overlapping anatomical structures obscure other ribs. There is subcutaneous air overlying the right chest region again noted. There is curvilinear opacity involving the right lung apex which may represent residual minimal right apical pneumothorax and/or atelectasis. Right pneumothorax has significantly decreased or resolved. Pulmonary vasculature and cardiac silhouette are within normal limits. There is blunting of the right costophrenic angle region which may represent a right pleural effusion or pleural thickening. There is mild right basilar atelectasis or infiltrate. Electronic device is seen overlying the left chest region. IMPRESSION: 1: Previously seen right pneumothorax has resolved or significantly decreased. There is a curvilinear opacity involving the right lung apex region which may represent atelectasis or residual very minimal pneumothorax. Subcutaneous air involving the right chest extrathoracic soft tissues again seen. 2: There is mild right pleural effusion and pleural thickening with right basilar atelectasis or infiltrate. 3: Multiple right rib fractures again seen. Dictated by: Dictated on workstation # [id number]
== END ==
LOC: RAD FS 11:01
PROVIDERS: ATTEND Surgery
DX: S22.41XA Multiple fractures of ribs, right side, initial encounter for closed fracture (principal); J90 Pleural effusion, not elsewhere classified; X58.XXXA Exposure to other specified factors, initial encounter
CPT/HCPCS: 71045

== ENCOUNTER → 2021-09-15 | Outpatient (CLI) | payer MEDICARE ==
--- NOTE | 2021-09-15 15:27 | Diagnostic Imaging Report ---
HISTORY: Right rib pain after fall. COMPARISON: 08/28/2021 TECHNIQUE: Frontal and oblique views of the right ribs FINDINGS: Lung volume appears large. There may be a trace right pleural effusion. There are multiple fractures of the right ribs from the posterior 6th rib down to the lateral right 10th rib. These mostly appear chronic or subacute with healing changes. No definitive acute fracture is seen. There does appear to be air along the right chest wall. No pneumothorax is seen and the previously seen right pneumothorax appears to have resolved. There is a very severe right convex curvature of the thoracic spine. IMPRESSION: 1. Multiple right-sided rib fractures, which appear subacute or chronic. No definite acute displaced rib fractures seen. 2. Air along the right chest wall. The previously seen right pneumothorax is no longer evident. 3. Trace right pleural effusion. Called and also faxed to Vishnu at 3:21 p.m. by cvb. Dictated by: Dictated on workstation # [id number]
== END ==
LOC: RAD FS 14:30
PROVIDERS: ATTEND Nurse Practitioner Family
DX: S22.41XA Multiple fractures of ribs, right side, initial encounter for closed fracture (principal); J90 Pleural effusion, not elsewhere classified; W19.XXXA Unspecified fall, initial encounter
CPT/HCPCS: 71100

== ENCOUNTER 2021-12-20 19:54 | Emergency (ER) | payer MEDICARE ==
--- NOTE | 2021-12-20 20:15 | ED Fall/Injury ---
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 Pt states it was happy hour and she had a little [place] to drink. Pt denies hitting her head or loc and is complaining of right rib pain. Pt has a small skin tear to right upper arm Source: patient, family Exam Limitations: no limitations History of Present Illness Date Seen by Provider: Dec 20, 2021 Time Seen by Provider: 20:00 Initial Comments 81-year-old female that was at the happy hour at the assisted living facility earlier today when she had a fall. Denies hitting her head, no loss of consciousness, no neck or back pain. Having some right-sided lower rib pain. Tetanus is up-to-date. The pain is mild, throbbing, worse with touching it, better with rest. She is otherwise denying any other acute complaints. Allergies and Home Medications Allergies Coded Allergies: No Known Drug Allergies (Unverified , 08/27/21) Patient Home Medication List Home Medication List Reviewed: Yes Acetaminophen (Tylenol) 325 Mg Tablet, 325-650 MG PO Q4H PRN for PAIN-MILD (1- 4), (Reported) Entered as Reported by: BETTINA VALENTIN on 08/30/21917 Aspirin (Aspirin EC) 81 Mg Tablet.dr, 81 MG PO DAILY, (Reported) Entered as Reported by: BETTINA VALENTIN on 08/30/21 09 Gabapentin (Neurontin) 300 Mg Capsule, 300 MG PO BID, (Reported) Entered as Reported by: BETTINA VALENTIN on 08/30/21 09 Hydrocodone/Acetaminophen (Hydrocodone-Acetamin 7.5-325) 7.5 Mg-325 Mg Tablet, 1 EACH PO Q4H Prescribed by: CANDICE HERNÁNDEZ on 08/30/21 174 Letrozole (Letrozole) 2.5 Mg Tablet, 2.5 MG PO 1999, (Reported) Entered as Reported by: BETTINA VALENTIN on 08/30/21 09 Loratadine (Claritin) 10 Mg Tablet, 10 MG PO DAILY, (Reported) Entered as Reported by: BETTINA VALENTIN on 08/30/21 09 Melatonin (Melatonin) 3 Mg Tablet, 6 MG PO HS PRN for SLEEP, (Reported) Entered as Reported by: BETTINA VALENTIN on 08/30/21 0921 Polyethylene Glycol 3350 (Miralax) 17 Gram Powd.pack, 17 GM PO BID, (Reported) Entered as Reported by: BETTINA VALENTIN on 08/30/21 0916 Sennosides/Docusate Sodium (Stimulant Laxative Plus Tablet) 8.6 Mg-50 Mg Tablet, 2 EACH PO BID, (Reported) Entered as Reported by: BETTINA VALENTIN on 08/30/21 0915 Review of Systems Review of Systems Constitutional: No fever Eyes: No Symptoms Reported Ears, Nose, Mouth, Throat: no symptoms reported Respiratory: no symptoms reported Cardiovascular: no symptoms reported Gastrointestinal: no symptoms reported Genitourinary: no symptoms reported Musculoskeletal: see HPI Skin: no symptoms reported Psychiatric/Neurological: No Symptoms Reported All Other Systems Reviewed Negative Unless Noted: Yes Past Hyxqoti-Chguck-Bsktvj Hx Patient Social History Tobacco Use?: No Substance use?: No Alcohol Use?: Yes Alcohol type: Hard Liquor Alcohol Frequency: Once in a while Pt feels they are or have been: No Immunizations Up To Date First/Initial COVID19 Vaccinat: Yes Second COVID19 Vaccination Ronny: Yes Third COVID19 Vaccination Date: Yes Past Medical History Surgery/Hospitalization HX: Right mastectomy; Hernia repair; frequent falls; hip fracture with repair x2; c5 fracture. Neuropathy Surgeries: Yes Degenerate Disk Disease Breast Physical Exam Vital Signs Vital Signs - First Documented Capillary Refill : Less Than 3 Seconds Height, Weight, BMI Height: '" Weight: lbs. oz. kg; 15.65 BMI Method: General Appearance: WD/WN, no apparent distress, thin HEENT: PERRL/EOMI, normal ENT inspection, pharynx normal Neck: non-tender, full range of motion, supple, normal inspection Cardiovascular: regular rate, rhythm, no edema, no murmur Respiratory: lungs clear, normal breath sounds, no respiratory distress, no accessory muscle use, other (Mild tenderness to the right anterior lower ribs) Gastrointestinal: normal bowel sounds, non tender, soft Back: normal inspection, no CVA tenderness, no vertebral tenderness Extremities: normal range of motion, non-tender, normal inspection, no pedal edema, no calf tenderness, normal capillary refill Neurologic/Psychiatric: no motor/sensory deficits, alert, normal mood/affect, oriented x 3 Skin: normal color, warm/dry Lymphatic: no adenopathy Donavan Coma Score Best Eye Response: (4) Open Spontaneously Best Verbal Response: (5) Oriented Best Motor Response: (6) Obeys Commands Progress/Results/Core Measures Results/Orders My Orders Orders - SHERRI LEE MD Chest 1 View Ap/Pa Only (12/20/21 20:08) Pelvis With Right Hip 2-3 View (12/20/21 20:08) Vital Signs/I&O 12/20/21 12/20/21 19:58 19:58 Temp 36.3 36.3 Pulse 67 67 Resp 18 18 B/P (MAP) 163/78 (106) 163/78 (106) Pulse Ox 92 92 O2 Delivery Room Air Room Air Blood Pressure Mean: 106 Progress Progress Note : Progress Note 81-year-old female with above history coming in after fall. ABCs were intact and vitals were stable on presentation. Does not have any significant injuries on my exam. Has a small skin tear to her right upper arm which is hemostatic and very superficial. X-ray of the chest, pelvis, right hip ordered and int erpreted by me showing no new fracture or dislocation. She does have old fractures, particularly in her ribs which are in different stages of healing. I believe she is stable for discharge with outpatient follow-up. She was sent home with strict return precautions. Diagnostic Imaging Diagonstic Imaging: Xray (chest, pelvis, right hip) Comments NAME: ZACKARY DARLING [facility] REC#: [id number] PT STATUS: REG ER : 1940 PHYSICIAN: SHERRI LEE MD ADMIT DATE: 12/20/21/ER FS Signed Date of Exam:12/20/21 CHEST 1 VIEW AP/PA ONLY EXAMINATION: Chest 1 view HISTORY: Fall. Right-sided chest pain. COMPARISON: 09/03/2021. FINDINGS: The lung volumes are normal. No focal consolidation is seen. No large pleural effusion or pneumothorax is seen. Stable cardiac silhouette. There is calcified aortic atherosclerotic plaque. No acute osseous abnormality is seen. There is S-shaped scoliosis of the thoracolumbar spine. Chronic right-sided rib fractures are seen. Surgical clips are seen in the right axilla. IMPRESSION: 1. No acute pleuroparenchymal process. 2. Stable severe S-shaped scoliosis of the thoracolumbar spine. Dictated by: Dictated on workstation # [id number] Dict: 12/20/212030 Trans: 12/20/212037 [id number] Interpreted by: SHANICE MEYERS DO Electronically signed by: SHANICE MEYERS DO 12/20/212037 Departure Impression Primary Impression: Frequent falls Additional Impression: Right-sided chest wall pain Disposition: 01 HOME, SELF-CARE Condition: Stable Departure-Patient Inst. Decision time for Depature: 20:39 Referrals: SANTHOSH AZEVEDO APRN (PCP) Primary Care Physician [facility] (Family) Primary Care Physician Patient Instructions: Preventing Falls in Older Adults Add. Discharge Instructions: Fortunately there is nothing new broken. There are old breaks in her ribs which are continuing to heal, and likely are flared up and causing more pain. Take Tylenol for pain. You can also try ice or heating pad, whichever feels better. SHERRI LEE MD Dec 20, 2021 20:15
--- NOTE | 2021-12-20 20:36 | Diagnostic Imaging Report ---
EXAMINATION: Chest 1 view HISTORY: Fall. Right-sided chest pain. COMPARISON: 09/03/2021. FINDINGS: The lung volumes are normal. No focal consolidation is seen. No large pleural effusion or pneumothorax is seen. Stable cardiac silhouette. There is calcified aortic atherosclerotic plaque. No acute osseous abnormality is seen. There is S-shaped scoliosis of the thoracolumbar spine. Chronic right-sided rib fractures are seen. Surgical clips are seen in the right axilla. IMPRESSION: 1. No acute pleuroparenchymal process. 2. Stable severe S-shaped scoliosis of the thoracolumbar spine. Dictated by: Dictated on workstation # [id number]
[2021-12-20 20:43] VITALS: BP 163/78
--- NOTE | 2021-12-20 20:45 | Diagnostic Imaging Report ---
CLINICAL HISTORY: Fall. Pelvic pain. COMPARISON: None. TECHNIQUE: 3 views of the pelvis and right hip. FINDINGS: There is no acute fracture or dislocation of the pelvis and right hip. Prior surgical fixation is seen in the pelvis and left hip. Old fractures are seen in the right superior pubic ramus and bilateral inferior pubic rami. No suspicious focal osseous lesions. A large amount of stool seen in the colon. IMPRESSION: 1. No acute fracture or dislocation in the pelvis and bilateral hips. 2. Chronic appearing fractures involving the right superior pubic ramus and bilateral inferior pubic rami. 3. Prior left total hip arthroplasty changes and surgical fixation in the pelvis. 4. Large amount of stool in the colon suggestive of constipation. Dictated by: Dictated on workstation # [id number]
== END 2021-12-20 20:44 | disposition home or self-care (01) ==
LOC: EDUNIT# 19:54 → ER FS 19:55
DX: S41.111A Laceration without foreign body of right upper arm, initial encounter (principal); R07.89 Other chest pain; R29.6 Repeated falls; W19.XXXA Unspecified fall, initial encounter; Y92.099 Unspecified place in other non-institutional residence as the place of occurrence of the external cause
CPT/HCPCS: 71045; 73502

== ENCOUNTER → 2021-12-22 | Outpatient (CLI) | payer MEDICARE ==
--- NOTE | 2021-12-22 17:48 | Diagnostic Imaging Report ---
EXAMINATION: Chest one view and right ribs three views HISTORY: Right rib pain COMPARISON: 09/15/2021 FINDINGS: There is an old right sixth posterior rib fracture. There is severe dextroscoliosis of the thoracic spine and levoscoliosis of the lumbar spine. There are several irregularities in the right anterolateral ribs difficult to characterize exactly which ones but there is clearly at least one acute rib fracture. IMPRESSION: 1. At least one acute anterolateral rib fracture. Due to the patient's severe scoliosis it is difficult to determine which rib this is. Chest CT could be performed for evaluation of additional fractures. Dictated by: Dictated on workstation # [id number]
== END ==
LOC: RAD FS 17:19
PROVIDERS: ATTEND Nurse Practitioner Family
DX: M41.9 Scoliosis, unspecified (principal); R07.81 Pleurodynia
CPT/HCPCS: 71101